=== PATIENT | male | born 1965 | race African-American/Black ===

== ENCOUNTER 2019-01-08 11:31 | Outpatient (CLI) | payer OTHER ==
--- NOTE | 2019-01-08 12:01 | RAD ---
LUMBAR SPINE 2 VIEWS: HISTORY: Disability exam. FINDINGS: AP and lateral views of the lumbar spine are performed. There are some generalized disc osteophytosi s and facet arthrosis changes. No evidence for acute compression fracture. No significant malalignm ent. IMPRESSION: Lumbar spondylosis without other acute process. POS: [facility]
== END 2019-01-08 11:32 | disposition home or self-care (01) ==
LOC: BICRAD 11:31
PROVIDERS: ATTEND Internal Medicine
DX: Z02.71 Encounter for disability determination (principal); M47.816 Spondylosis without myelopathy or radiculopathy, lumbar region
CPT/HCPCS: 72100

== ENCOUNTER 2019-01-12 09:26 | Outpatient (CLI) | payer OTHER ==
--- NOTE | 2019-01-12 09:49 | RAD ---
RIGHT KNEE TWO VIEWS: History: Disability examination. FINDINGS: No acute fracture or dislocation. Mild degenerative changes. IMPRESSION: Unremarkable left knee. POS: [facility]
== END 2019-01-12 09:27 | disposition home or self-care (01) ==
LOC: BICRAD 09:26
PROVIDERS: ATTEND Internal Medicine
DX: Z02.71 Encounter for disability determination (principal)

== ENCOUNTER 2020-04-28 13:51 | Emergency (ER) | payer SELFPAY ==
[2020-04-28 15:12] LABS: Hemoglobin 8.7 g/dL (14.0-18.0); Mean Corpuscular HGB CONC 29.5 g/dL (32.0-36.0); Mean Corpuscular Hemoglobin 22.5 pg (27.0-31.0); Mean Corpuscular Volume 76.3 fL (78.0-98.0); Mean Platelet Volume 10.2 fL (7.4-10.4); Platelet Count 248 thou/uL (130-400); RBC Distribution Width 21.5 % (11.5-14.5); Red Blood Cell (RBC) Count 3.84 mill/uL (4.70-6.10); White Blood Cell (WBC) Count 6.5 thou/uL (4.8-10.8)
[2020-04-28 15:35] LABS: ALT (SGPT) 18 U/L (8-55); AST (SGOT) 32 U/L (5-34); Albumin 4.1 g/dL (3.5-5.0); Alkaline Phosphatase 62 U/L (40-110); Anion Gap 15 mmol/L (10-20); BUN (Urea Nitrogen) 8 mg/dL (8.4-25.7); Bilirubin, Total 0.3 mg/dL (0.2-1.2); Calc. Creatinine Clearance 0 mL/min (70-130); Carbon Dioxide 19 mmol/L (22-29); Chloride 106 mmol/L (98-107); Estimated GFR-MDRD Greater than 90; Globulin 3.5 g/dL (2.4-3.5); Glucose 105 mg/dL (70-105); Potassium 4.1 mmol/L (3.5-5.1); Protein, Total 7.6 g/dL (6.0-8.3); Sodium 136 mmol/L (136-145)
[2020-04-28 15:41] LABS: Anisocytosis MODERATE=16-30 cells (100X) (0-5/hpf); Band 2 % (5-11); Eosinophils 5 % (0-10); Hypochromia SLIGHT = 6-15 cells (100X) (0-5/hpf); Lymphocytes 22 % (21-51); MDiff Complete? YES; Microcytosis SLIGHT = 6-15 cells (100X) (0-5/hpf); Monocytes 20 % (0-10); Neutrophil 47 % (42-75); Nucleated RBC 1 % (0); Ovalocytes SLIGHT = 2-5 cells (100X) (0-1/hpf); Platelet Morphology Comment Appears Adequate; Polychromasia SLIGHT = 2-3 cells (100X) (0-2/hpf); Schistocytes SLIGHT = 2-5 cells (100X) (0-1/hpf)
--- NOTE | 2020-05-06 15:34 | EKG ---
Test Reason : Blood Pressure : / mmHG Vent. Rate : 074 BPM Atrial Rate : 074 BPM P-R Int : 122 ms QRS Dur : 086 ms QT Int : 392 ms P-R-T Axes : 036 015 020 degrees QTc Int : 435 ms Normal sinus rhythm Normal ECG Confirmed by JUAN CARLOS AGUILAR DO ([id number]), editor [employer] photograph VIN DONG ([id number]) on 05/06/2020 3:34:21 PM Referred By: Confirmed By:JUAN CARLOS AGUILAR DO
== END 2020-04-28 16:45 | disposition home or self-care (01) ==
LOC: ERS 13:51
DX: D64.9 Anemia, unspecified (principal); R42 Dizziness and giddiness; J45.909 Unspecified asthma, uncomplicated; Z79.51 Long term (current) use of inhaled steroids
CPT/HCPCS: 80053; 84484; 85025; 93005; 96360

== ENCOUNTER 2022-07-12 15:19 | Inpatient (IN) | payer SELFPAY ==
[2022-07-12] MEDS ORDERED: Morphine 4 MG/ML VIAL ONE (17:25)
[2022-07-12 17:34] LABS: #Lymphocytes 1.9 thou/uL (1.20-3.40); #Monocytes 0.9 thou/uL (0.11-0.59); #Neutrophils 3.3 thou/uL (1.40-6.50); %Basophils 0.2 % (0.0-1.0); %Eosinophils 0.5 % (0.0-10.0); %Lymphocytes 31.6 % (21.0-51.0); %Monocytes 14.8 % (0.0-10.0); %Neutrophils 52.9 % (42.0-75.0); Hemoglobin 11.3 g/dL (14.0-18.0); Mean Corpuscular HGB CONC 33.3 g/dL (32.0-36.0); Mean Corpuscular Hemoglobin 29.9 pg (27.0-31.0); Mean Corpuscular Volume 89.9 fl (78.0-98.0); Mean Platelet Volume 7.3 fL (7.4-10.4); Platelet Count 197 thou/uL (130-400); RBC Distribution Width 12.5 % (11.5-14.5); Red Blood Cell (RBC) Count 3.78 mill/uL (4.70-6.10); White Blood Cell (WBC) Count 6.1 thou/uL (4.8-10.8)
[2022-07-12 17:53] LABS: ALT (SGPT) 22 U/L (8-55); AST (SGOT) 29 U/L (5-34); Albumin 2.6 g/dL (3.5-5.0); Alkaline Phosphatase 106 U/L (40-110); Anion Gap 13 mmol/L (10-20); BUN (Urea Nitrogen) 4 mg/dL (8.4-25.7); Bilirubin, Total 0.6 mg/dL (0.2-1.2); Calc. Creatinine Clearance 0 mL/min (70-130); Calcium 7.4 mg/dL (7.8-10.44); Carbon Dioxide 21 mmol/L (22-29); Chloride 105 mmol/L (98-107); Estimated GFR 107; Globulin 3.1 g/dL (2.4-3.5); Glucose 90 mg/dL (70-105); Protein, Total 5.7 g/dL (6.0-8.3); Sodium 136 mmol/L (136-145)
[2022-07-12 18:01] LABS: Potassium 2.6 mmol/L (3.5-5.1)
[2022-07-12] MEDS ORDERED: Magnesium 2 GM/50 ML BAG (IN WATER) ONE (18:11)
[2022-07-12] MEDS ORDERED: Potassium Chloride 20 MEQ TAB ONE (18:12)
[2022-07-12] MEDS ORDERED: NS 0.9% w/ 40 MEQ KCL 1,000 ML IV SCH (18:15)
[2022-07-12] MEDS ORDERED: Acetaminophen 325 MG TAB PO PRN (20:30)
[2022-07-12] MEDS ORDERED: Ondansetron PF 4 MG/2 ML Vial IVP PRN (20:30)
[2022-07-12] MEDS ORDERED: Ondansetron ODT 4 MG TAB SL PRN (20:30)
[2022-07-12] MEDS ORDERED: Albuterol Sulfate 2.5 mg/3 ml Neb NEB PRN (20:59)
[2022-07-12] MEDS ORDERED: Lorazepam 2 MG/ML VIAL IM PRN (21:02)
[2022-07-12] MEDS ORDERED: Lorazepam 1 MG TAB PO PRN (21:02)
[2022-07-12] MEDS ORDERED: Electrolyte Replacement Protocol 1 EACH FS SCH (21:15)
[2022-07-12] MEDS ORDERED: Folic Acid 1 MG TAB PO SCH (21:15)
[2022-07-12] MEDS ORDERED: Multivit, Therapeutic 1 TAB PO SCH (21:15)
[2022-07-12 23:12] LABS: Magnesium 1.4 mg/dL (1.6-2.6); Potassium 3.3 mmol/L (3.5-5.1)
[2022-07-12] MEDS: Gabapentin 300 MG CAP PO SCH (23:20)
[2022-07-12] MEDS: Thiamine HCl 200 MG/2 ML VIAL SLOW IVP SCH (23:21)
[2022-07-13] MEDS ORDERED: Magnesium Sulfate In Water 4 GM in Premix Bag 1 BAG IVPB SCH (05:00)
[2022-07-13] MEDS ORDERED: Magnesium Sulfate 4 GM in Sodium Chloride 0.9% 250 ML 250 ML IVPB SCH (05:00)
[2022-07-13 05:28] LABS: Anion Gap 11 mmol/L (10-20); BUN (Urea Nitrogen) 4 mg/dL (8.4-25.7); Calc. Creatinine Clearance 89 mL/min (70-130); Carbon Dioxide 19 mmol/L (22-29); Chloride 111 mmol/L (98-107); Estimated GFR 107; Glucose 196 mg/dL (70-105); Magnesium 1.4 mg/dL (1.6-2.6); Potassium 3.1 mmol/L (3.5-5.1); Sodium 138 mmol/L (136-145)
[2022-07-13 05:44] LABS: Band 7 % (5-11); Hemoglobin 10.5 g/dL (14.0-18.0); Lymphocytes 33 % (21-51); MDiff Complete? YES; Mean Corpuscular HGB CONC 31.7 g/dL (32.0-36.0); Mean Corpuscular Hemoglobin 29.3 pg (27.0-31.0); Mean Corpuscular Volume 92.5 fl (78.0-98.0); Mean Platelet Volume 7.3 fL (7.4-10.4); Monocytes 19 % (0-10); Neutrophil 41 % (42-75); Platelet Count 201 thou/uL (130-400); RBC Distribution Width 12.6 % (11.5-14.5); Red Blood Cell (RBC) Count 3.58 mill/uL (4.70-6.10); White Blood Cell (WBC) Count 6.2 thou/uL (4.8-10.8)
[2022-07-13] MEDS ORDERED: Potassium Chloride 20 MEQ TAB PO SCH (07:45)
[2022-07-13] MEDS ORDERED: Magnesium 2 GM/50 ML(in water) 2 GM in Premix Bag 1 BAG IVPB SCH (08:00)
[2022-07-13] MEDS ORDERED: CALCIUM GLUC 1GM/NS 50ML BAG IVPB SCH (08:00)
[2022-07-13] MEDS: Multivit, Therapeutic 1 TAB PO SCH (08:34)
[2022-07-13] MEDS: Gabapentin 300 MG CAP PO SCH ×3 (08:34→20:49)
[2022-07-13] MEDS: Enoxaparin Sodium 40 MG/0.4 ML SYRINGE SC SCH (08:34)
[2022-07-13] MEDS: Folic Acid 1 MG TAB PO SCH (08:35)
[2022-07-13] MEDS: Potassium Chloride 20 MEQ in Premix Bag 1 BAG IVPB SCH ×3 (10:46→13:24)
[2022-07-13 14:00] VITALS: BMI 17.2
[2022-07-13] MEDS ORDERED: Albuterol 200 PUFF (6.7GM INHALER) INH PRN (17:19)
[2022-07-13 18:46] LABS: Potassium 3.9 mmol/L (3.5-5.1)
[2022-07-13] MEDS: Thiamine HCl 200 MG/2 ML VIAL SLOW IVP SCH (20:47)
[2022-07-13] MEDS ORDERED: Lorazepam 1 MG TAB PO PRN (21:02)
[2022-07-14 05:41] LABS: Hemoglobin 10.4 g/dL (14.0-18.0); Mean Corpuscular HGB CONC 32.3 g/dL (32.0-36.0); Mean Corpuscular Hemoglobin 29.9 pg (27.0-31.0); Mean Corpuscular Volume 92.6 fl (78.0-98.0); Platelet Count 179 thou/uL (130-400); RBC Distribution Width 12.6 % (11.5-14.5); Red Blood Cell (RBC) Count 3.46 mill/uL (4.70-6.10); White Blood Cell (WBC) Count 5.7 thou/uL (4.8-10.8)
[2022-07-14 05:42] LABS: Band 2 % (5-11); Eosinophils 2 % (0-10); Lymphocytes 27 % (21-51); MDiff Complete? YES; Monocytes 14 % (0-10); Neutrophil 55 % (42-75)
[2022-07-14 05:47] LABS: Anion Gap 10 mmol/L (10-20); BUN (Urea Nitrogen) 6 mg/dL (8.4-25.7); Calc. Creatinine Clearance 91 mL/min (70-130); Calcium 7.3 mg/dL (7.8-10.44); Carbon Dioxide 20 mmol/L (22-29); Chloride 111 mmol/L (98-107); Estimated GFR 108; Glucose 110 mg/dL (70-105); Magnesium 1.6 mg/dL (1.6-2.6); Potassium 3.4 mmol/L (3.5-5.1); Sodium 138 mmol/L (136-145)
[2022-07-14] MEDS: Mometasone 200 MCG/Formoterol 5 MCG 120 PUFF INHALER INH SCH ×2 (07:25→18:58)
[2022-07-14] MEDS ORDERED: Potassium Chloride 20 MEQ TAB PO SCH (08:00)
[2022-07-14] MEDS ORDERED: Magnesium 2 GM/50 ML(in water) 2 GM in Premix Bag 1 BAG IVPB SCH (08:00)
[2022-07-14] MEDS: Enoxaparin Sodium 40 MG/0.4 ML SYRINGE SC SCH (09:09)
[2022-07-14] MEDS: Gabapentin 300 MG CAP PO SCH ×3 (09:10→20:46)
[2022-07-14] MEDS: HYDROcodone/Acetaminophen 5/325 mg Tablet PO PRN ×2 (09:10→20:40)
[2022-07-14] MEDS: Ferrous Sulfate 325 MG TAB PO SCH (09:10)
[2022-07-14] MEDS: Folic Acid 1 MG TAB PO SCH (09:10)
[2022-07-14] MEDS: Multivit, Therapeutic 1 TAB PO SCH (09:10)
[2022-07-14 14:10] LABS: Potassium 3.9 mmol/L (3.5-5.1)
[2022-07-14] MEDS: Thiamine HCl 200 MG/2 ML VIAL SLOW IVP SCH (20:45)
[2022-07-14] MEDS ORDERED: Lorazepam 1 MG TAB PO PRN (21:02)
[2022-07-15] MEDS: traMADol HCl 50 MG TAB PO PRN (05:36)
[2022-07-15 05:43] LABS: Anion Gap 10 mmol/L (10-20); BUN (Urea Nitrogen) 7 mg/dL (8.4-25.7); Calc. Creatinine Clearance 93 mL/min (70-130); Calcium 7.2 mg/dL (7.8-10.44); Carbon Dioxide 20 mmol/L (22-29); Chloride 111 mmol/L (98-107); Estimated GFR 108; Glucose 90 mg/dL (70-105); Magnesium 1.3 mg/dL (1.6-2.6); Potassium 3.3 mmol/L (3.5-5.1); Sodium 138 mmol/L (136-145)
[2022-07-15] MEDS: Mometasone 200 MCG/Formoterol 5 MCG 120 PUFF INHALER INH SCH ×2 (06:45→18:40)
[2022-07-15] MEDS ORDERED: Potassium Chloride 20 MEQ TAB PO SCH (08:00)
[2022-07-15] MEDS ORDERED: Magnesium Sulfate In Water 4 GM in Premix Bag 1 BAG IVPB SCH (08:00)
[2022-07-15] MEDS: Gabapentin 300 MG CAP PO SCH ×3 (09:14→20:37)
[2022-07-15] MEDS: Multivit, Therapeutic 1 TAB PO SCH (09:15)
[2022-07-15] MEDS: Ferrous Sulfate 325 MG TAB PO SCH (09:15)
[2022-07-15] MEDS: Folic Acid 1 MG TAB PO SCH (09:15)
[2022-07-15] MEDS: Thiamine 100 MG TAB PO SCH (09:15)
[2022-07-15] MEDS: Enoxaparin Sodium 40 MG/0.4 ML SYRINGE SC SCH (09:16)
[2022-07-15] MEDS ORDERED: Atenolol 25 MG TAB PO SCH (15:30)
[2022-07-15] MEDS ORDERED: Lorazepam 0.5 MG TAB PO PRN (21:02)
[2022-07-16] MEDS: Mometasone 200 MCG/Formoterol 5 MCG 120 PUFF INHALER INH SCH (08:02)
[2022-07-16] MEDS ORDERED: Atenolol 25 MG TAB PO SCH (09:00)
[2022-07-16] MEDS: Multivit, Therapeutic 1 TAB PO SCH (09:39)
[2022-07-16] MEDS: Ferrous Sulfate 325 MG TAB PO SCH (09:39)
[2022-07-16] MEDS: Thiamine 100 MG TAB PO SCH (09:40)
[2022-07-16] MEDS: Folic Acid 1 MG TAB PO SCH (09:40)
[2022-07-16] MEDS: Enoxaparin Sodium 40 MG/0.4 ML SYRINGE SC SCH (09:40)
[2022-07-16] MEDS: Gabapentin 300 MG CAP PO SCH ×2 (09:40→14:12)
[2022-07-16] MEDS: traMADol HCl 50 MG TAB PO PRN (09:46)
[2022-07-17 02:36] VITALS: BP 152/99; TEMP 98.3
== END 2022-07-16 17:40 | disposition home or self-care (01) | DRG 641 ==
LOC: ERS 15:19 → 2SW 21:16 → OBSVTOIN 07-13 17:11
PROVIDERS: ADMIT Hospitalist; ATTEND Hospitalist
DX: E87.6 Hypokalemia (principal); Z20.822 Contact with and (suspected) exposure to COVID-19; J45.909 Unspecified asthma, uncomplicated; G89.29 Other chronic pain; J45.20 Mild intermittent asthma, uncomplicated; F10.10 Alcohol abuse, uncomplicated; D50.9 Iron deficiency anemia, unspecified; E83.42 Hypomagnesemia; M51.37 Other intervertebral disc degeneration, lumbosacral region; Z80.3 Family history of malignant neoplasm of breast; Z80.51 Family history of malignant neoplasm of kidney; Z79.899 Other long term (current) drug therapy; Z79.51 Long term (current) use of inhaled steroids
CPT/HCPCS: 36415; 72148; 80048; 80053; 82607; 83735; 83880; 84443; 85025; 85379; 93005; 96372; 96374; 96375; 96376; G0378; J0610; J1650; J2270; J3411; J3475; J3480; U0003; U0005

== ENCOUNTER 2022-11-16 09:21 | Inpatient (IN) | payer SELFPAY ==
[2022-11-16 10:25] LABS: #Lymphocytes 1.5 thou/uL (1.20-3.40); #Monocytes 0.4 thou/uL (0.11-0.59); #Neutrophils 2.9 thou/uL (1.40-6.50); %Basophils 0.1 % (0.0-1.0); %Eosinophils 0.2 % (0.0-10.0); %Lymphocytes 31.5 % (21.0-51.0); %Neutrophils 59.1 % (42.0-75.0); Hemoglobin 9.5 g/dL (14.0-18.0); Mean Corpuscular HGB CONC 32.4 g/dL (32.0-36.0); Mean Corpuscular Hemoglobin 28.5 pg (27.0-31.0); Mean Platelet Volume 9.4 fL (7.4-10.4); Platelet Count 150 10x3/uL (130-400); RBC Distribution Width 13.7 % (11.5-14.5); Red Blood Cell (RBC) Count 3.33 mill/uL (4.70-6.10); White Blood Cell (WBC) Count 4.9 10x3/uL (4.8-10.8)
[2022-11-16 10:36] LABS: ALT (SGPT) 42 U/L (8-55); AST (SGOT) 44 U/L (5-34); Albumin 1.7 g/dL (3.5-5.0); Alkaline Phosphatase 119 U/L (40-110); Anion Gap 14 mmol/L (10-20); BUN (Urea Nitrogen) 5 mg/dL (8.4-25.7); Bilirubin, Total 0.4 mg/dL (0.2-1.2); CK (CPK) 746 U/L (30-200); Calc. Creatinine Clearance 0 mL/min (70-130); Carbon Dioxide 25 mmol/L (22-29); Chloride 105 mmol/L (98-107); Estimated GFR 108; Globulin 3.6 g/dL (2.4-3.5); Glucose 101 mg/dL (70-105); Lipase Less than 4 U/L (8-78); Protein, Total 5.3 g/dL (6.0-8.3); Sodium 142 mmol/L (136-145)
[2022-11-16 10:36] LABS: Acetaminophen Less than 10.0 mcg/mL (10.0-30.0); Alcohol Less than 10 mg/dL (Less than 10); Salicylate Less than 8.0 mg/dL (15.0-30.0)
[2022-11-16 10:48] LABS: Calcium 5.3 mg/dL (7.8-10.44)
[2022-11-16] MEDS ORDERED: Potassium Chloride 20 MEQ TAB ONE (10:55)
[2022-11-16 13:00] LABS: Lactic Acid 2.7 mmol/L (0.5-2.2)
[2022-11-16] MEDS ORDERED: Senokot S 8.6-50 MG TAB PO PRN (13:35)
[2022-11-16] MEDS ORDERED: Ondansetron PF 4 MG/2 ML Vial IVP PRN (13:35)
[2022-11-16] MEDS ORDERED: Acetaminophen 325 MG TAB PO PRN (13:35)
[2022-11-16] MEDS ORDERED: Ondansetron ODT 4 MG TAB PO PRN (13:35)
[2022-11-16] MEDS ORDERED: Electrolyte Replacement Protocol FS SCH (13:45)
[2022-11-16] MEDS: Ipratropium/Albuterol 3 ML NEB NEB PRN (14:50)
[2022-11-16] MEDS ORDERED: CALCIUM GLUC 1 GM/NS 50 ML 1 GM in Premix Bag 1 BAG IVPB SCH (15:15)
[2022-11-16] MEDS ORDERED: Multivit, Therapeutic 1 TAB PO SCH (16:00)
[2022-11-16] MEDS ORDERED: Folic Acid 1 MG TAB PO SCH (16:00)
[2022-11-16 16:14] LABS: Potassium 2.3 mmol/L (3.5-5.1)
[2022-11-16] MEDS: Potassium Chloride 20 MEQ in Premix Bag 1 BAG IVPB SCH ×2 (16:53→20:24)
[2022-11-16 19:49] LABS: Lactic Acid 4.4 mmol/L (0.5-2.2)
[2022-11-16] MEDS: Morphine 2 MG/ML VIAL SLOW IVP PRN (20:45)
[2022-11-16 23:52] LABS: #Lymphocytes 1.1 thou/uL (1.20-3.40); #Monocytes 0.7 thou/uL (0.11-0.59); #Neutrophils 7.6 thou/uL (1.40-6.50); %Basophils 0.1 % (0.0-1.0); %Eosinophils 0.1 % (0.0-10.0); %Neutrophils 80.7 % (42.0-75.0); Hemoglobin 9.3 g/dL (14.0-18.0); Mean Corpuscular HGB CONC 31.6 g/dL (32.0-36.0); Mean Corpuscular Hemoglobin 27.8 pg (27.0-31.0); Mean Corpuscular Volume 88.1 fl (78.0-98.0); Mean Platelet Volume 9.1 fL (7.4-10.4); Platelet Count 142 10x3/uL (130-400); RBC Distribution Width 13.6 % (11.5-14.5); Red Blood Cell (RBC) Count 3.32 mill/uL (4.70-6.10); White Blood Cell (WBC) Count 9.4 10x3/uL (4.8-10.8)
[2022-11-17 00:01] LABS: Actual Bicarbonate (HCO3v) 23 mEq/L (22-28); Base Excess -1.7 mEq/L (-2.0 to +3.0); Chloride (VBG) 104 mmol/L (98-106); Hemoglobin (Hb) 10.4 g/dL (13.1-17.2); Sodium 135.1 mmol/L (133-146)
[2022-11-17 00:12] LABS: ALT (SGPT) 43 U/L (8-55); AST (SGOT) 41 U/L (5-34); Albumin 1.5 g/dL (3.5-5.0); Alkaline Phosphatase 114 U/L (40-110); Anion Gap 15 mmol/L (10-20); BUN (Urea Nitrogen) 7 mg/dL (8.4-25.7); Bilirubin, Total 0.4 mg/dL (0.2-1.2); Calc. Creatinine Clearance 66 mL/min (70-130); Carbon Dioxide 21 mmol/L (22-29); Chloride 105 mmol/L (98-107); Estimated GFR 98; Globulin 3.6 g/dL (2.4-3.5); Glucose 201 mg/dL (70-105); Protein, Total 5.1 g/dL (6.0-8.3); Sodium 138 mmol/L (136-145)
[2022-11-17 00:15] LABS: Calcium 5.2 mg/dL (7.8-10.44); Potassium 2.6 mmol/L (3.5-5.1)
[2022-11-17] MEDS ORDERED: Albumin 25% 25 GM/100 ML BOT IVPB SCH (00:15)
[2022-11-17] MEDS ORDERED: Calcium Gluconate 4.6 MEQ in Sodium Chloride 0.9% 100 ML IVPB ONE (00:22)
[2022-11-17] MEDS: Potassium Chloride 20 MEQ in Premix Bag 1 BAG IVPB SCH ×5 (00:34→18:32)
[2022-11-17 00:40] LABS: Lactic Acid 5.7 mmol/L (0.5-2.2); Magnesium 0.8 mg/dL (1.6-2.6)
[2022-11-17] MEDS ORDERED: CALCIUM GLUC 1 GM/NS 50 ML 1 GM in Premix Bag 1 BAG IVPB SCH (00:45)
[2022-11-17] MEDS ORDERED: Magnesium Sulfate In Water 4 GM in Premix Bag 1 BAG IVPB SCH (01:30)
[2022-11-17] MEDS ORDERED: Vancomycin 1 GM in Premix Bag 1 BAG IVPB SCH (03:00)
[2022-11-17] MEDS: Cefepime 2 GM in Sodium Chloride 0.9% 100 ML IVPB SCH ×2 (03:08→16:31)
[2022-11-17] MEDS ORDERED: Sodium Chloride 0.9% 500 ML IV SCH (03:30)
[2022-11-17 05:33] LABS: Hemoglobin 6.9 g/dL (14.0-18.0); Mean Corpuscular HGB CONC 33.1 g/dL (32.0-36.0); Mean Corpuscular Hemoglobin 28.9 pg (27.0-31.0); Mean Corpuscular Volume 87.2 fl (78.0-98.0); RBC Distribution Width 13.6 % (11.5-14.5); White Blood Cell (WBC) Count 22.4 10x3/uL (4.8-10.8)
[2022-11-17 05:35] LABS: INR-International Normal Ratio 2.1; PTT 53.2 sec (22.9-36.1); Prothrombin Time 24.4 sec (12.0-14.7)
[2022-11-17 05:52] LABS: Lactic Acid 5.1 mmol/L (0.5-2.2); Phosphorus 1.5 mg/dL (2.3-4.7)
[2022-11-17 05:55] LABS: ALT (SGPT) 31 U/L (8-55); AST (SGOT) 25 U/L (5-34); Alkaline Phosphatase 82 U/L (40-110); Anion Gap 15 mmol/L (10-20); BUN (Urea Nitrogen) 8 mg/dL (8.4-25.7); Bilirubin, Total 0.4 mg/dL (0.2-1.2); CK (CPK) 442 U/L (30-200); Calc. Creatinine Clearance 71 mL/min (70-130); Carbon Dioxide 19 mmol/L (22-29); Chloride 106 mmol/L (98-107); Estimated GFR 100; Globulin 2.5 g/dL (2.4-3.5); Glucose 245 mg/dL (70-105); Potassium 2.8 mmol/L (3.5-5.1); Protein, Total 4.5 g/dL (6.0-8.3); Sodium 137 mmol/L (136-145)
[2022-11-17 06:02] LABS: Calcium 5.2 mg/dL (7.8-10.44)
[2022-11-17 06:08] LABS: Ferritin 662.71 ng/mL (22-322)
[2022-11-17 06:22] LABS: HBCM Index 0.08 S/CO (0-0.79); HBSAg Index 0.36 S/CO (0-0.99); Hep A IgM AB Non-Reactive (NonReactive); Hep B Surf Ag Non-Reactive S/CO (NonReactive); Hep C IgG Ab Non-Reactive (NonReactive); Hep C Index 0.12 S/CO (0-0.79); Hepatitis B Core IgM Abs Non-Reactive (NonReactive)
[2022-11-17] MEDS: PHOS-NAK 1 PKT PACK PO SCH ×2 (06:31→10:05)
[2022-11-17 06:36] LABS: Band 1 % (5-11); Lymphocytes 3 % (21-51); MDiff Complete? YES; Mean Platelet Volume 9.6 fL (7.4-10.4); Monocytes 6 % (0-10); Neutrophil 89 % (42-75); Platelet Count 109 10x3/uL (130-400); Platelet Morphology Comment Appears Decreased; Polychromasia SLIGHT = 2-3 cells (100X) (0-2/hpf); Reactive Lymphocytes 1 % (0-10); Schistocytes SLIGHT = 2-5 cells (100X) (0-1/hpf)
[2022-11-17 07:11] LABS: Bacteria/HPF None Seen HPF (None Seen); Bilirubin Negative (Negative); Blood, Urine Negative (Negative); CAUTI Indications for Culture Fever or rigors; Clarity Clear (Clear); Glucose, Urine (Dipstick) Normal (Negative); Ketone, Urine Negative (Negative); Leukocyte Negative Leu/uL (Negative); Nitrite Negative (Negative); Protein, Urine (Dipstick) 10 mg/dL (Neg-Trace); RBC/HPF 0-3 HPF (0-3); Specific Gravity, Urine 1.027 (1.002-1.036); Squamous Epithelial None Seen HPF (0-3); Urobilinogen Normal mg/dL (Less than 2)
[2022-11-17 07:13] LABS: Urine Culture Reflex No No
[2022-11-17 07:14] LABS: Amphetamine Not Detected (NotDetected); Barbiturates Screen Not Detected (NotDetected); Benzodiazepine Screen Not Detected (NotDetected); Cocaine Metabolite Screen Detected (NotDetected); Methadone Not Detected (NotDetected); Methamphetamine Not Detected (NotDetected); Opiate Screen Detected (NotDetected); Oxycodone Screen Not Detected (NotDetected); Phencyclidine (PCP) Not Detected (NotDetected); THC/Cannabinoid Screen Not Detected (NotDetected); Tricyclic Screen Not Detected (NotDetected)
[2022-11-17] MEDS ORDERED: Potassium Chloride 20 MEQ in Premix Bag 1 BAG IVPB SCH ×2 (08:00→20:00)
[2022-11-17 08:37] LABS: Lactic Acid 3.9 mmol/L (0.5-2.2)
[2022-11-17 08:40] LABS: Anion Gap 12 mmol/L (10-20); BUN (Urea Nitrogen) 7 mg/dL (8.4-25.7); Calc. Creatinine Clearance 90 mL/min (70-130); Carbon Dioxide 20 mmol/L (22-29); Chloride 106 mmol/L (98-107); Estimated GFR 103; Glucose 192 mg/dL (70-105); Magnesium 1.5 mg/dL (1.6-2.6); Sodium 135 mmol/L (136-145)
[2022-11-17 08:57] LABS: Calcium 5.1 mg/dL (7.8-10.44)
[2022-11-17] MEDS: Folic Acid 1 MG TAB PO SCH (10:05)
[2022-11-17] MEDS: Multivit, Therapeutic 1 TAB PO SCH (10:06)
[2022-11-17 11:45] LABS: Syphilis Antibody Nonreactive (Nonreactive); Syphilis Antibody Index 0.12 S/CO (<1.00 Non-Reactive)
[2022-11-17] MEDS ORDERED: Magnesium 2 GM/50 ML(in water) 2 GM in Premix Bag 1 BAG IVPB SCH (12:15)
[2022-11-17] MEDS ORDERED: Potassium Phosphate 30 MMOL in Sodium Chloride 0.9% 250 ML 250 ML IVPB SCH (13:00)
[2022-11-17] MEDS ORDERED: Phytonadione 10 MG in Sodium Chloride 0.9% 50 ML IVPB SCH (13:00)
[2022-11-17] MEDS ORDERED: ISOVUE-370 76%-LOCM 500 ML MDV (1 ML CHARGE) ONE (15:23)
[2022-11-17] MEDS ORDERED: Gadobenate 529 MG/1 ML (20ML SDV) ONE (15:28)
[2022-11-17] MEDS: Morphine 2 MG/ML VIAL SLOW IVP PRN (16:21)
[2022-11-17] MEDS: Vancomycin HCl 750 MG in Sodium Chloride 0.9% 250 ML 250 ML IVPB SCH ×2 (16:32→23:29)
[2022-11-17 16:48] LABS: Albumin 1.8 g/dL (3.5-5.0); Anion Gap 13 mmol/L (10-20); BUN (Urea Nitrogen) 7 mg/dL (8.4-25.7); BUN/Creatinine Ratio 9.09; Calc. Creatinine Clearance 90 mL/min (70-130); Carbon Dioxide 21 mmol/L (22-29); Chloride 106 mmol/L (98-107); Estimated GFR 103; Glucose 164 mg/dL (70-105); Phosphorus 1.8 mg/dL (2.3-4.7); Potassium 3.3 mmol/L (3.5-5.1); Sodium 137 mmol/L (136-145)
[2022-11-17 16:58] LABS: Calcium 5.6 mg/dL (7.8-10.44)
[2022-11-17] MEDS ORDERED: Calcium Chloride 13.6 MEQ in Sodium Chloride 0.9% 100 ML IVPB SCH (17:15)
[2022-11-17] MEDS: Albumin 25% 25 GM/100 ML BOT IVPB SCH ×2 (17:50→23:29)
[2022-11-18] MEDS: Ipratropium/Albuterol 3 ML NEB NEB PRN (00:49)
[2022-11-18] MEDS: Cefepime 2 GM in Sodium Chloride 0.9% 100 ML IVPB SCH ×2 (00:51→13:32)
[2022-11-18] MEDS: Albumin 25% 25 GM/100 ML BOT IVPB SCH ×2 (00:51→06:09)
[2022-11-18 03:58] LABS: Hemoglobin 7.1 g/dL (14.0-18.0); Mean Corpuscular HGB CONC 32.7 g/dL (32.0-36.0); Mean Corpuscular Volume 85.7 fl (78.0-98.0); Mean Platelet Volume 9.7 fL (7.4-10.4); Platelet Count 78 10x3/uL (130-400); RBC Distribution Width 13.4 % (11.5-14.5); Red Blood Cell (RBC) Count 2.52 mill/uL (4.70-6.10); White Blood Cell (WBC) Count 15.7 10x3/uL (4.8-10.8)
[2022-11-18] MEDS: Vancomycin HCl 750 MG in Sodium Chloride 0.9% 250 ML 250 ML IVPB SCH ×3 (04:13→21:56)
[2022-11-18 04:21] LABS: Vancomycin, Trough 19.3 ug/mL
[2022-11-18 04:37] LABS: Phosphorus 2.7 mg/dL (2.3-4.7)
[2022-11-18 04:38] LABS: ALT (SGPT) 21 U/L (8-55); AST (SGOT) 17 U/L (5-34); Albumin 2.8 g/dL (3.5-5.0); Albumin 3.1 g/dL (3.5-5.0); Alkaline Phosphatase 65 U/L (40-110); Anion Gap 11 mmol/L (10-20); Anion Gap 14 mmol/L (10-20); BUN (Urea Nitrogen) 7 mg/dL (8.4-25.7); Bilirubin, Total 1.1 mg/dL (0.2-1.2); CK (CPK) 291 U/L (30-200); Calc. Creatinine Clearance 93 mL/min (70-130); Calc. Creatinine Clearance 99 mL/min (70-130); Calcium 6.3 mg/dL (7.8-10.44); Carbon Dioxide 20 mmol/L (22-29); Carbon Dioxide 23 mmol/L (22-29); Chloride 108 mmol/L (98-107); Chloride 109 mmol/L (98-107); Estimated GFR 104; Estimated GFR 106; Globulin 2.1 g/dL (2.4-3.5); Glucose 155 mg/dL (70-105); Magnesium 1.2 mg/dL (1.6-2.6); Phosphorus 2.7 mg/dL (2.3-4.7); Potassium 2.9 mmol/L (3.5-5.1); Protein, Total 5.2 g/dL (6.0-8.3); Sodium 139 mmol/L (136-145); Sodium 140 mmol/L (136-145)
[2022-11-18 04:39] LABS: HIV (1/2) Antibody/Antigen Non-Reactive (NonReactive); HIV 1/2 INDEX 0.25 S/CO (<1.00)
[2022-11-18] MEDS ORDERED: Calcium Chloride 13.6 MEQ in Sodium Chloride 0.9% 100 ML IVPB SCH (05:30)
[2022-11-18 06:01] LABS: #Lymphocytes 1.1 thou/uL (1.20-3.40); #Monocytes 1.8 thou/uL (0.11-0.59); #Neutrophils 12.8 thou/uL (1.40-6.50); %Basophils 0.1 % (0.0-1.0); %Eosinophils 0.1 % (0.0-10.0); %Lymphocytes 6.9 % (21.0-51.0); %Monocytes 11.4 % (0.0-10.0); %Neutrophils 81.5 % (42.0-75.0); Band 6 % (5-11); Lymphocytes 3 % (21-51); MDiff Complete? YES; Monocytes 6 % (0-10); Neutrophil 85 % (42-75); Nucleated RBC 1 % (0)
[2022-11-18] MEDS ORDERED: Potassium Chloride 20 MEQ TAB PO SCH (08:00)
[2022-11-18] MEDS ORDERED: Magnesium Sulfate In Water 4 GM in Premix Bag 1 BAG IVPB SCH (08:00)
[2022-11-18] MEDS: Multivit, Therapeutic 1 TAB PO SCH (09:01)
[2022-11-18] MEDS: Folic Acid 1 MG TAB PO SCH (09:01)
[2022-11-18] MEDS: Ergocalciferol 1.25 MG(50,000 UNITS) CAP PO SCH (09:02)
[2022-11-18] MEDS: Potassium Bicarbonate/Cit Ac 20 MEQ TAB PO SCH ×3 (09:02→16:44)
[2022-11-18] MEDS: Phytonadione 5 MG TAB PO SCH (11:42)
[2022-11-18 12:01] LABS: Calcium, Ionized (venous) 0.68 mmol/L (1.16-1.32); Potassium (VBG) 2.61 mmol/L (3.70-5.30)
[2022-11-18 12:03] LABS: Iron 46 ug/dL (65-175)
[2022-11-19 01:03] LABS: Iron Binding Capacity, Total 28 mcg/dL (261-462)
[2022-11-19] MEDS: Cefepime 2 GM in Sodium Chloride 0.9% 100 ML IVPB SCH ×2 (01:54→12:51)
[2022-11-19] MEDS: Vancomycin HCl 750 MG in Sodium Chloride 0.9% 250 ML 250 ML IVPB SCH ×2 (03:41→13:41)
[2022-11-19 04:09] LABS: Vancomycin, Trough 24.7 ug/mL
[2022-11-19 09:03] LABS: #Lymphocytes 1.9 thou/uL (1.20-3.40); #Monocytes 2.4 thou/uL (0.11-0.59); #Neutrophils 13.3 thou/uL (1.40-6.50); %Lymphocytes 10.6 % (21.0-51.0); %Monocytes 13.4 % (0.0-10.0); %Neutrophils 75.9 % (42.0-75.0); Hemoglobin 8.1 g/dL (14.0-18.0); Mean Corpuscular Hemoglobin 27.9 pg (27.0-31.0); Mean Corpuscular Volume 87.3 fl (78.0-98.0); Mean Platelet Volume 10.3 fL (7.4-10.4); Platelet Count 82 10x3/uL (130-400); RBC Distribution Width 13.6 % (11.5-14.5); Red Blood Cell (RBC) Count 2.92 mill/uL (4.70-6.10); White Blood Cell (WBC) Count 17.5 10x3/uL (4.8-10.8)
[2022-11-19 09:24] LABS: ALT (SGPT) 23 U/L (8-55); AST (SGOT) 23 U/L (5-34); Albumin 2.7 g/dL (3.5-5.0); Alkaline Phosphatase 69 U/L (40-110); Anion Gap 12 mmol/L (10-20); BUN (Urea Nitrogen) 7 mg/dL (8.4-25.7); Bilirubin, Total 0.6 mg/dL (0.2-1.2); Calc. Creatinine Clearance 101 mL/min (70-130); Carbon Dioxide 24 mmol/L (22-29); Chloride 108 mmol/L (98-107); Estimated GFR 108; Globulin 2.7 g/dL (2.4-3.5); Glucose 148 mg/dL (70-105); Protein, Total 5.4 g/dL (6.0-8.3); Sodium 141 mmol/L (136-145)
[2022-11-19 09:29] LABS: Calcium 6.3 mg/dL (7.8-10.44)
[2022-11-19] MEDS ORDERED: Potassium Chloride 20 MEQ TAB PO SCH (09:45)
[2022-11-19] MEDS: Multivit, Therapeutic 1 TAB PO SCH (10:03)
[2022-11-19] MEDS: Folic Acid 1 MG TAB PO SCH (10:03)
[2022-11-19] MEDS: Phytonadione 5 MG TAB PO SCH (10:04)
[2022-11-19] MEDS ORDERED: Calcium Chloride 13.6 MEQ in Sodium Chloride 0.9% 100 ML IVPB SCH (12:00)
[2022-11-19] MEDS ORDERED: Magnesium Sulfate 4 GM in Sodium Chloride 0.9% 250 ML 250 ML IVPB SCH (12:00)
[2022-11-19 12:05] LABS: Vancomycin, Trough 41.7 ug/mL
[2022-11-19 12:39] LABS: CK (CPK) 323 U/L (30-200); Magnesium 1.3 mg/dL (1.6-2.6)
[2022-11-19] MEDS: Magnesium 2 GM/50 ML(in water) 2 GM in Premix Bag 1 BAG IVPB SCH ×2 (12:51→15:32)
[2022-11-19] MEDS: Potassium Bicarbonate/Cit Ac 20 MEQ TAB PO SCH ×3 (12:51→20:13)
[2022-11-19] MEDS: Albumin 25% 25 GM/100 ML BOT IVPB SCH ×2 (12:51→17:29)
[2022-11-19] MEDS: Morphine 2 MG/ML VIAL SLOW IVP PRN (13:35)
[2022-11-19] MEDS: Thiamine 100 MG TAB PO SCH (15:32)
[2022-11-20] MEDS: Potassium Bicarbonate/Cit Ac 20 MEQ TAB PO SCH (00:53)
[2022-11-20] MEDS: Cefepime 2 GM in Sodium Chloride 0.9% 100 ML IVPB SCH ×2 (00:54→14:08)
[2022-11-20] MEDS: Albumin 25% 25 GM/100 ML BOT IVPB SCH ×2 (00:54→06:46)
[2022-11-20 05:08] LABS: #Lymphocytes 1.2 thou/uL (1.20-3.40); %Basophils 0.1 % (0.0-1.0); %Eosinophils 0.1 % (0.0-10.0); %Lymphocytes 10.4 % (21.0-51.0); %Monocytes 9.1 % (0.0-10.0); %Neutrophils 80.3 % (42.0-75.0); Hemoglobin 7.6 g/dL (14.0-18.0); Mean Corpuscular HGB CONC 32.8 g/dL (32.0-36.0); Mean Corpuscular Hemoglobin 28.7 pg (27.0-31.0); Mean Corpuscular Volume 87.4 fl (78.0-98.0); Mean Platelet Volume 11.1 fL (7.4-10.4); Platelet Count 64 10x3/uL (130-400); RBC Distribution Width 13.7 % (11.5-14.5); Red Blood Cell (RBC) Count 2.66 mill/uL (4.70-6.10); White Blood Cell (WBC) Count 11.1 10x3/uL (4.8-10.8)
[2022-11-20 05:15] LABS: ALT (SGPT) 19 U/L (8-55); AST (SGOT) 20 U/L (5-34); Albumin 3.4 g/dL (3.5-5.0); Alkaline Phosphatase 57 U/L (40-110); Anion Gap 17 mmol/L (10-20); BUN (Urea Nitrogen) 7 mg/dL (8.4-25.7); Bilirubin, Total 0.7 mg/dL (0.2-1.2); CK (CPK) 298 U/L (30-200); Calc. Creatinine Clearance 107 mL/min (70-130); Calcium 7.1 mg/dL (7.8-10.44); Carbon Dioxide 21 mmol/L (22-29); Chloride 110 mmol/L (98-107); Estimated GFR 110; Globulin 2.2 g/dL (2.4-3.5); Glucose 133 mg/dL (70-105); Magnesium 1.6 mg/dL (1.6-2.6); Potassium 4.1 mmol/L (3.5-5.1); Protein, Total 5.6 g/dL (6.0-8.3); Sodium 144 mmol/L (136-145)
[2022-11-20 05:20] LABS: Phosphorus 1.1 mg/dL (2.3-4.7)
[2022-11-20] MEDS ORDERED: Magnesium Sulfate In Water 4 GM in Premix Bag 1 BAG IVPB SCH (06:30)
[2022-11-20] MEDS ORDERED: Electrolyte Replacement Protocol FS PRN (06:30)
[2022-11-20] MEDS ORDERED: Potassium Phosphate 30 MMOL in Sodium Chloride 0.9% 250 ML 250 ML IVPB SCH (07:00)
[2022-11-20] MEDS: Folic Acid 1 MG TAB PO SCH (08:42)
[2022-11-20] MEDS: Multivit, Therapeutic 1 TAB PO SCH (08:42)
[2022-11-20] MEDS: Morphine 2 MG/ML VIAL SLOW IVP PRN (08:43)
[2022-11-20] MEDS ORDERED: Vancomycin 1 GM in Premix Bag 1 BAG IVPB SCH (12:00)
[2022-11-20 12:12] LABS: Vancomycin, Random 12.9 ug/mL (See Comment)
[2022-11-20] MEDS: Calcium Carbonate 500 MG ChewTAB PO SCH ×2 (17:27→20:47)
[2022-11-20] MEDS: Thiamine 100 MG TAB PO SCH (17:27)
[2022-11-20] MEDS: Ipratropium/Albuterol 3 ML NEB NEB SCH (19:59)
[2022-11-21 05:07] LABS: Hemoglobin 7.7 g/dL (14.0-18.0); Mean Corpuscular HGB CONC 32.7 g/dL (32.0-36.0); Mean Corpuscular Hemoglobin 28.8 pg (27.0-31.0); Mean Corpuscular Volume 88.1 fl (78.0-98.0); Mean Platelet Volume 11.1 fL (7.4-10.4); Platelet Count 67 10x3/uL (130-400); RBC Distribution Width 13.8 % (11.5-14.5); Red Blood Cell (RBC) Count 2.69 mill/uL (4.70-6.10); White Blood Cell (WBC) Count 6.9 10x3/uL (4.8-10.8)
[2022-11-21 05:26] LABS: Anion Gap 12 mmol/L (10-20); BUN (Urea Nitrogen) 5 mg/dL (8.4-25.7); Calc. Creatinine Clearance 109 mL/min (70-130); Carbon Dioxide 23 mmol/L (22-29); Chloride 109 mmol/L (98-107); Estimated GFR 110; Glucose 146 mg/dL (70-105); Magnesium 1.6 mg/dL (1.6-2.6); Potassium 3.8 mmol/L (3.5-5.1); Sodium 140 mmol/L (136-145)
[2022-11-21 05:31] LABS: Calcium 6.9 mg/dL (7.8-10.44)
[2022-11-21 05:59] LABS: Hypochromia SLIGHT = 6-15 cells (100X) (0-5/hpf); Lymphocytes 25 % (21-51); MDiff Complete? YES; Monocytes 12 % (0-10); Neutrophil 63 % (42-75); Platelet Morphology Comment Appears Decreased; Schistocytes SLIGHT = 2-5 cells (100X) (0-1/hpf); Target Cells SLIGHT = 2-5 cells (100X) (0-1/hpf); Tear Drops SLIGHT = 2-5 cells (100X) (0-1/hpf)
[2022-11-21] MEDS ORDERED: Magnesium Sulfate In Water 4 GM in Premix Bag 1 BAG IVPB SCH (06:30)
[2022-11-21] MEDS ORDERED: Potassium Phosphate 30 MMOL in Sodium Chloride 0.9% 250 ML 250 ML IVPB SCH (06:45)
[2022-11-21] MEDS ORDERED: Calcium Chloride 13.6 MEQ in Sodium Chloride 0.9% 100 ML IVPB SCH (06:45)
[2022-11-21] MEDS: Ipratropium/Albuterol 3 ML NEB NEB SCH ×3 (08:32→20:24)
[2022-11-21] MEDS: Folic Acid 1 MG TAB PO SCH (08:48)
[2022-11-21] MEDS: Calcium Carbonate 500 MG ChewTAB PO SCH ×3 (08:49→20:37)
[2022-11-21] MEDS: Multivit, Therapeutic 1 TAB PO SCH (08:49)
[2022-11-21] MEDS: Thiamine 100 MG TAB PO SCH (14:58)
[2022-11-21 18:15] LABS: Albumin 2.6 g/dL (3.5-5.0); Anion Gap 13 mmol/L (10-20); BUN (Urea Nitrogen) 5 mg/dL (8.4-25.7); BUN/Creatinine Ratio 7.46; Calc. Creatinine Clearance 101 mL/min (70-130); Calcium 7.6 mg/dL (7.8-10.44); Carbon Dioxide 23 mmol/L (22-29); Chloride 109 mmol/L (98-107); Estimated GFR 108; Glucose 170 mg/dL (70-105); Phosphorus 2.3 mg/dL (2.3-4.7); Sodium 141 mmol/L (136-145)
[2022-11-22 07:10] LABS: Anion Gap 9 mmol/L (10-20); BUN (Urea Nitrogen) 6 mg/dL (8.4-25.7); Calc. Creatinine Clearance 105 mL/min (70-130); Calcium 7.9 mg/dL (7.8-10.44); Carbon Dioxide 27 mmol/L (22-29); Chloride 109 mmol/L (98-107); Estimated GFR 109; Glucose 164 mg/dL (70-105); Potassium 3.5 mmol/L (3.5-5.1); Sodium 141 mmol/L (136-145)
[2022-11-22] MEDS: Ipratropium/Albuterol 3 ML NEB NEB SCH ×3 (07:23→19:01)
[2022-11-22 07:43] LABS: Albumin 2.3 g/dL (3.5-5.0); Anion Gap 11 mmol/L (10-20); BUN (Urea Nitrogen) 6 mg/dL (8.4-25.7); BUN/Creatinine Ratio 9.38; Calc. Creatinine Clearance 105 mL/min (70-130); Calcium 7.7 mg/dL (7.8-10.44); Carbon Dioxide 25 mmol/L (22-29); Chloride 110 mmol/L (98-107); Estimated GFR 109; Glucose 163 mg/dL (70-105); Magnesium 1.5 mg/dL (1.6-2.6); Phosphorus 1.5 mg/dL (2.3-4.7); Potassium 3.6 mmol/L (3.5-5.1); Sodium 142 mmol/L (136-145)
[2022-11-22 07:48] LABS: Burr Cells SLIGHT = 2-5 cells (100X) (0-1/hpf); Hemoglobin 7.8 g/dL (14.0-18.0); Hypochromia SLIGHT = 6-15 cells (100X) (0-5/hpf); Lymphocytes 16 % (21-51); MDiff Complete? YES; Mean Corpuscular HGB CONC 32.7 g/dL (32.0-36.0); Mean Corpuscular Hemoglobin 28.6 pg (27.0-31.0); Mean Corpuscular Volume 87.2 fl (78.0-98.0); Mean Platelet Volume 10.6 fL (7.4-10.4); Monocytes 15 % (0-10); Neutrophil 66 % (42-75); Nucleated RBC 1 % (0); Platelet Count 81 10x3/uL (130-400); Platelet Morphology Comment Appears Decreased; Polychromasia SLIGHT = 2-3 cells (100X) (0-2/hpf); RBC Distribution Width 13.8 % (11.5-14.5); Reactive Lymphocytes 3 % (0-10); Red Blood Cell (RBC) Count 2.73 mill/uL (4.70-6.10); Target Cells SLIGHT = 2-5 cells (100X) (0-1/hpf); White Blood Cell (WBC) Count 6.3 10x3/uL (4.8-10.8)
[2022-11-22] MEDS ORDERED: Potassium Phosphate 30 MMOL in Sodium Chloride 0.9% 250 ML 250 ML IVPB SCH (08:00)
[2022-11-22] MEDS ORDERED: Magnesium Sulfate In Water 4 GM in Premix Bag 1 BAG IVPB SCH (08:00)
[2022-11-22] MEDS: Calcium Carbonate 500 MG ChewTAB PO SCH ×3 (08:02→20:15)
[2022-11-22] MEDS: Multivit, Therapeutic 1 TAB PO SCH (08:02)
[2022-11-22] MEDS: Folic Acid 1 MG TAB PO SCH (08:02)
[2022-11-22] MEDS: Thiamine 100 MG TAB PO SCH (15:49)
[2022-11-22 15:58] LABS: Anion Gap 11 mmol/L (10-20); BUN (Urea Nitrogen) 6 mg/dL (8.4-25.7); Calc. Creatinine Clearance 105 mL/min (70-130); Calcium 7.6 mg/dL (7.8-10.44); Carbon Dioxide 23 mmol/L (22-29); Chloride 110 mmol/L (98-107); Estimated GFR 109; Glucose 216 mg/dL (70-105); Magnesium 1.9 mg/dL (1.6-2.6); Phosphorus 2.9 mg/dL (2.3-4.7); Potassium 4.1 mmol/L (3.5-5.1); Sodium 140 mmol/L (136-145)
[2022-11-22] MEDS ORDERED: Magnesium 2 GM/50 ML(in water) 2 GM in Premix Bag 1 BAG IVPB SCH ×2 (18:15→19:15)
[2022-11-22] MEDS ORDERED: Spironolactone 100 MG TAB PO SCH (18:30)
[2022-11-22] MEDS ORDERED: Albumin 25% 25 GM/100 ML BOT IVPB SCH (18:30)
[2022-11-22] MEDS ORDERED: Epoetin (ESRD) 10,000 UNITS/ML VIAL SC SCH (18:45)
[2022-11-22] MEDS ORDERED: EPOETIN ALFA-EPBX (ESRD) 10,000 UNIT/ML VIAL SC SCH (18:45)
[2022-11-23] MEDS: Albumin 25% 25 GM/100 ML BOT IVPB SCH ×4 (00:17→17:52)
[2022-11-23] MEDS ORDERED: traMADol HCl 50 MG TAB PO SCH (01:45)
[2022-11-23 06:47] LABS: Anion Gap 9 mmol/L (10-20); BUN (Urea Nitrogen) 7 mg/dL (8.4-25.7); CK (CPK) 85 U/L (30-200); Calc. Creatinine Clearance 109 mL/min (70-130); Calcium 8.2 mg/dL (7.8-10.44); Carbon Dioxide 27 mmol/L (22-29); Chloride 109 mmol/L (98-107); Estimated GFR 110; Glucose 97 mg/dL (70-105); Magnesium 1.7 mg/dL (1.6-2.6); Phosphorus 2.2 mg/dL (2.3-4.7); Potassium 3.6 mmol/L (3.5-5.1); Sodium 141 mmol/L (136-145)
[2022-11-23] MEDS: Ipratropium/Albuterol 3 ML NEB NEB SCH ×3 (07:10→19:59)
[2022-11-23] MEDS ORDERED: Magnesium 2 GM/50 ML(in water) 2 GM in Premix Bag 1 BAG IVPB SCH (08:00)
[2022-11-23] MEDS: Calcium Carbonate 500 MG ChewTAB PO SCH ×3 (08:32→20:03)
[2022-11-23] MEDS: Multivit, Therapeutic 1 TAB PO SCH (08:33)
[2022-11-23] MEDS: Folic Acid 1 MG TAB PO SCH (08:33)
[2022-11-23] MEDS: Spironolactone 100 MG TAB PO SCH (08:42)
[2022-11-23] MEDS ORDERED: Potassium Phosphate 30 MMOL in Sodium Chloride 0.9% 500 ML IVPB SCH (09:00)
[2022-11-23] MEDS: Thiamine 100 MG TAB PO SCH (14:15)
[2022-11-24 06:56] LABS: Anion Gap 10 mmol/L (10-20); BUN (Urea Nitrogen) 6 mg/dL (8.4-25.7); Calc. Creatinine Clearance 121 mL/min (70-130); Calcium 7.9 mg/dL (7.8-10.44); Carbon Dioxide 23 mmol/L (22-29); Chloride 109 mmol/L (98-107); Estimated GFR 110; Glucose 90 mg/dL (70-105); Magnesium 1.4 mg/dL (1.6-2.6); Potassium 3.4 mmol/L (3.5-5.1); Sodium 139 mmol/L (136-145)
[2022-11-24 06:59] LABS: Hemoglobin 6.7 g/dL (14.0-18.0); Lymphocytes 33 % (21-51); MDiff Complete? YES; Mean Corpuscular HGB CONC 32.8 g/dL (32.0-36.0); Mean Corpuscular Hemoglobin 28.7 pg (27.0-31.0); Mean Corpuscular Volume 87.3 fl (78.0-98.0); Mean Platelet Volume 10.1 fL (7.4-10.4); Monocytes 13 % (0-10); Neutrophil 53 % (42-75); Platelet Count 121 10x3/uL (130-400); Platelet Morphology Comment Appears Decreased; RBC Distribution Width 14.1 % (11.5-14.5); RBC Morphology Normal; Red Blood Cell (RBC) Count 2.34 mill/uL (4.70-6.10); White Blood Cell (WBC) Count 6.2 10x3/uL (4.8-10.8)
[2022-11-24] MEDS: Ipratropium/Albuterol 3 ML NEB NEB SCH ×3 (07:32→18:25)
[2022-11-24] MEDS ORDERED: Potassium Chloride 20 MEQ TAB PO SCH (08:00)
[2022-11-24] MEDS: Folic Acid 1 MG TAB PO SCH (08:44)
[2022-11-24] MEDS: Spironolactone 100 MG TAB PO SCH (08:44)
[2022-11-24] MEDS: Multivit, Therapeutic 1 TAB PO SCH (08:44)
[2022-11-24] MEDS: Calcium Carbonate 500 MG ChewTAB PO SCH ×3 (08:44→19:49)
[2022-11-24] MEDS ORDERED: Magnesium Sulfate In Water 4 GM in Premix Bag 1 BAG IVPB SCH ×2 (09:00→18:30)
[2022-11-24] MEDS ORDERED: Magnesium Sulfate 3 GM in Sodium Chloride 0.9% 100 ML IVPB SCH ×2 (10:00→18:15)
[2022-11-24] MEDS: Potassium Chloride 20 MEQ TAB PO SCH ×2 (10:39→14:20)
[2022-11-24] MEDS: Thiamine 100 MG TAB PO SCH (14:20)
[2022-11-24 17:39] LABS: Hemoglobin 9.2 g/dL (14.0-18.0); Platelet Count 129 10x3/uL (130-400)
[2022-11-24 17:59] LABS: Magnesium 1.7 mg/dL (1.6-2.6); Phosphorus 2.2 mg/dL (2.3-4.7); Potassium 3.8 mmol/L (3.5-5.1)
[2022-11-24] MEDS ORDERED: Potassium Phosphate 15 MMOL in Sodium Chloride 0.9% 250 ML 250 ML IVPB SCH (18:15)
[2022-11-25] MEDS: Ipratropium/Albuterol 3 ML NEB NEB PRN (02:50)
[2022-11-25] MEDS: Ipratropium/Albuterol 3 ML NEB NEB SCH ×3 (07:01→18:48)
[2022-11-25 07:17] LABS: ALT (SGPT) 18 U/L (8-55); AST (SGOT) 19 U/L (5-34); Albumin 2.8 g/dL (3.5-5.0); Alkaline Phosphatase 71 U/L (40-110); Anion Gap 12 mmol/L (10-20); BUN (Urea Nitrogen) 7 mg/dL (8.4-25.7); Bilirubin, Total 0.8 mg/dL (0.2-1.2); Calc. Creatinine Clearance 114 mL/min (70-130); Calcium 8.2 mg/dL (7.8-10.44); Carbon Dioxide 23 mmol/L (22-29); Chloride 111 mmol/L (98-107); Estimated GFR 108; Globulin 2.1 g/dL (2.4-3.5); Glucose 94 mg/dL (70-105); Phosphorus 2.5 mg/dL (2.3-4.7); Potassium 4.5 mmol/L (3.5-5.1); Protein, Total 4.9 g/dL (6.0-8.3); Sodium 141 mmol/L (136-145)
[2022-11-25 07:41] LABS: Hemoglobin 9.5 g/dL (14.0-18.0); Mean Corpuscular HGB CONC 32.9 g/dL (32.0-36.0); Mean Corpuscular Hemoglobin 28.5 pg (27.0-31.0); Mean Corpuscular Volume 86.8 fl (78.0-98.0); Mean Platelet Volume 10.3 fL (7.4-10.4); Platelet Count 140 10x3/uL (130-400); RBC Distribution Width 15.1 % (11.5-14.5); Red Blood Cell (RBC) Count 3.34 mill/uL (4.70-6.10); White Blood Cell (WBC) Count 8.2 10x3/uL (4.8-10.8)
[2022-11-25 07:42] LABS: Band 1 % (5-11); Lymphocytes 16 % (21-51); MDiff Complete? YES; Monocytes 20 % (0-10); Neutrophil 63 % (42-75); Target Cells SLIGHT = 2-5 cells (100X) (0-1/hpf)
[2022-11-25] MEDS ORDERED: Magnesium 2 GM/50 ML(in water) 2 GM in Premix Bag 1 BAG IVPB SCH (08:00)
[2022-11-25] MEDS: Folic Acid 1 MG TAB PO SCH (08:21)
[2022-11-25] MEDS: Potassium Chloride 20 MEQ TAB PO SCH (08:22)
[2022-11-25] MEDS: Multivit, Therapeutic 1 TAB PO SCH (08:22)
[2022-11-25] MEDS: Thiamine 100 MG TAB PO SCH (08:22)
[2022-11-25] MEDS: Calcium Carbonate 500 MG ChewTAB PO SCH ×3 (08:22→22:10)
[2022-11-25] MEDS: Spironolactone 100 MG TAB PO SCH (09:21)
[2022-11-25] MEDS: Ergocalciferol 1.25 MG(50,000 UNITS) CAP PO SCH (11:40)
[2022-11-25] MEDS ORDERED: Torsemide 10 MG TAB PO SCH (12:00)
[2022-11-26 07:56] LABS: Albumin 2.6 g/dL (3.5-5.0); Anion Gap 8 mmol/L (10-20); BUN (Urea Nitrogen) 8 mg/dL (8.4-25.7); BUN/Creatinine Ratio 13.56; Calc. Creatinine Clearance 123 mL/min (70-130); Calcium 8.1 mg/dL (7.8-10.44); Carbon Dioxide 24 mmol/L (22-29); Chloride 111 mmol/L (98-107); Estimated GFR 112; Glucose 92 mg/dL (70-105); Phosphorus 2.6 mg/dL (2.3-4.7); Potassium 3.4 mmol/L (3.5-5.1); Sodium 140 mmol/L (136-145)
[2022-11-26] MEDS ORDERED: Potassium Chloride 20 MEQ TAB PO SCH (08:15)
[2022-11-26] MEDS: Torsemide 10 MG TAB PO SCH (09:03)
[2022-11-26] MEDS: Multivit, Therapeutic 1 TAB PO SCH (09:03)
[2022-11-26] MEDS: Spironolactone 100 MG TAB PO SCH ×3 (09:03→22:04)
[2022-11-26] MEDS: Folic Acid 1 MG TAB PO SCH (09:03)
[2022-11-26] MEDS: Calcium Carbonate 500 MG ChewTAB PO SCH ×3 (09:04→22:04)
[2022-11-26] MEDS: Potassium Chloride 20 MEQ TAB PO SCH (09:07)
[2022-11-26] MEDS: Thiamine 100 MG TAB PO SCH (15:35)
[2022-11-27 07:10] LABS: Hemoglobin 8.5 g/dL (14.0-18.0); Mean Corpuscular HGB CONC 31.9 g/dL (32.0-36.0); Mean Corpuscular Hemoglobin 28.5 pg (27.0-31.0); Mean Corpuscular Volume 89.2 fl (78.0-98.0); Mean Platelet Volume 8.7 fL (7.4-10.4); Platelet Count 170 10x3/uL (130-400); RBC Distribution Width 16.1 % (11.5-14.5); Red Blood Cell (RBC) Count 2.98 mill/uL (4.70-6.10); White Blood Cell (WBC) Count 8.1 10x3/uL (4.8-10.8)
[2022-11-27 07:24] LABS: Albumin 2.4 g/dL (3.5-5.0); Anion Gap 11 mmol/L (10-20); BUN (Urea Nitrogen) 9 mg/dL (8.4-25.7); BUN/Creatinine Ratio 13.24; Calc. Creatinine Clearance 106 mL/min (70-130); Calcium 7.6 mg/dL (7.8-10.44); Carbon Dioxide 22 mmol/L (22-29); Chloride 110 mmol/L (98-107); Estimated GFR 107; Glucose 95 mg/dL (70-105); Phosphorus 2.7 mg/dL (2.3-4.7); Potassium 3.5 mmol/L (3.5-5.1); Sodium 139 mmol/L (136-145)
[2022-11-27] MEDS ORDERED: Magnesium Sulfate 4 GM in Sodium Chloride 0.9% 250 ML 250 ML IVPB SCH (08:15)
[2022-11-27 08:31] LABS: Band 7 % (5-11); Hypochromia SLIGHT = 6-15 cells (100X) (0-5/hpf); Lymphocytes 15 % (21-51); MDiff Complete? YES; Monocytes 9 % (0-10); Neutrophil 67 % (42-75); Platelet Morphology Comment Appears Adequate; Polychromasia SLIGHT = 2-3 cells (100X) (0-2/hpf); Reactive Lymphocytes 2 % (0-10); Target Cells SLIGHT = 2-5 cells (100X) (0-1/hpf)
[2022-11-27] MEDS: Folic Acid 1 MG TAB PO SCH (08:53)
[2022-11-27] MEDS: Potassium Chloride 20 MEQ TAB PO SCH (08:54)
[2022-11-27] MEDS: Spironolactone 100 MG TAB PO SCH ×2 (08:54→20:21)
[2022-11-27] MEDS: Multivit, Therapeutic 1 TAB PO SCH (08:54)
[2022-11-27] MEDS: Calcium Carbonate 500 MG ChewTAB PO SCH ×3 (08:54→20:21)
[2022-11-27] MEDS: Torsemide 10 MG TAB PO SCH (08:55)
[2022-11-27] MEDS ORDERED: Magnesium Sulfate In Water 4 GM in Sodium Chloride 0.9% 250 ML 250 ML IVPB SCH (10:00)
[2022-11-27] MEDS ORDERED: Magnesium Sulfate In Water 4 GM in Premix Bag 1 BAG IVPB SCH (10:00)
[2022-11-27] MEDS ORDERED: Potassium Bicarbonate/Cit Ac 20 MEQ TAB PO SCH (12:45)
[2022-11-27] MEDS ORDERED: Torsemide 10 MG TAB PO SCH (13:15)
[2022-11-27] MEDS: Thiamine 100 MG TAB PO SCH (14:49)
[2022-11-27 17:13] LABS: Magnesium 1.5 mg/dL (1.6-2.6); Potassium 3.9 mmol/L (3.5-5.1)
[2022-11-28] MEDS ORDERED: Magnesium 2 GM/50 ML(in water) 2 GM in Premix Bag 1 BAG IVPB SCH ×2 (05:00→08:00)
[2022-11-28 06:21] LABS: Hemoglobin 9.2 g/dL (14.0-18.0)
[2022-11-28 06:40] LABS: Anion Gap 11 mmol/L (10-20); BUN (Urea Nitrogen) 8 mg/dL (8.4-25.7); Calc. Creatinine Clearance 100 mL/min (70-130); Calcium 7.8 mg/dL (7.8-10.44); Carbon Dioxide 26 mmol/L (22-29); Chloride 104 mmol/L (98-107); Estimated GFR 105; Glucose 114 mg/dL (70-105); Magnesium 1.5 mg/dL (1.6-2.6); Potassium 3.4 mmol/L (3.5-5.1); Sodium 138 mmol/L (136-145)
[2022-11-28] MEDS ORDERED: Potassium Chloride 20 MEQ TAB PO SCH (08:00)
[2022-11-28 08:11] LABS: Phosphorus 2.2 mg/dL (2.3-4.7)
[2022-11-28] MEDS: Potassium Chloride 20 MEQ TAB PO SCH (08:22)
[2022-11-28] MEDS: Multivit, Therapeutic 1 TAB PO SCH (08:22)
[2022-11-28] MEDS: Calcium Carbonate 500 MG ChewTAB PO SCH ×3 (08:22→20:44)
[2022-11-28] MEDS: Torsemide 20 MG TAB PO SCH (08:22)
[2022-11-28] MEDS: Spironolactone 100 MG TAB PO SCH ×2 (08:23→20:44)
[2022-11-28] MEDS: Folic Acid 1 MG TAB PO SCH (08:23)
[2022-11-28] MEDS ORDERED: Potassium Phosphate 30 MMOL in Sodium Chloride 0.9% 250 ML 250 ML IVPB SCH (09:00)
[2022-11-28 10:10] VITALS: BMI 20.2
[2022-11-28] MEDS: Thiamine 100 MG TAB PO SCH (14:30)
[2022-11-29] MEDS: Spironolactone 100 MG TAB PO SCH ×2 (08:09→20:49)
[2022-11-29] MEDS: Multivit, Therapeutic 1 TAB PO SCH (08:09)
[2022-11-29] MEDS: Potassium Chloride 20 MEQ TAB PO SCH (08:09)
[2022-11-29] MEDS: Torsemide 20 MG TAB PO SCH (08:09)
[2022-11-29] MEDS: Calcium Carbonate 500 MG ChewTAB PO SCH ×3 (08:09→20:49)
[2022-11-29] MEDS: Folic Acid 1 MG TAB PO SCH (08:09)
[2022-11-29 08:45] LABS: Anion Gap 11 mmol/L (10-20); BUN (Urea Nitrogen) 9 mg/dL (8.4-25.7); Calc. Creatinine Clearance 109 mL/min (70-130); Calcium 8.2 mg/dL (7.8-10.44); Carbon Dioxide 27 mmol/L (22-29); Chloride 105 mmol/L (98-107); Estimated GFR 108; Glucose 79 mg/dL (70-105); Magnesium 1.2 mg/dL (1.6-2.6); Phosphorus 2.2 mg/dL (2.3-4.7); Potassium 3.7 mmol/L (3.5-5.1); Sodium 139 mmol/L (136-145)
[2022-11-29] MEDS ORDERED: Magnesium Sulfate In Water 4 GM in Premix Bag 1 BAG IVPB SCH ×2 (09:00→10:00)
[2022-11-29] MEDS ORDERED: Potassium Phosphate 30 MMOL in Sodium Chloride 0.9% 250 ML 250 ML IVPB SCH (10:00)
[2022-11-29] MEDS: Thiamine 100 MG TAB PO SCH (14:53)
[2022-11-29 19:15] LABS: Hemoglobin 9.4 g/dL (14.0-18.0); Platelet Count 211 10x3/uL (130-400)
[2022-11-30 08:30] LABS: Phosphorus 2.3 mg/dL (2.3-4.7)
[2022-11-30 08:33] LABS: Anion Gap 12 mmol/L (10-20); BUN (Urea Nitrogen) 8 mg/dL (8.4-25.7); Calc. Creatinine Clearance 112 mL/min (70-130); Calcium 8.4 mg/dL (7.8-10.44); Carbon Dioxide 24 mmol/L (22-29); Chloride 105 mmol/L (98-107); Estimated GFR 109; Glucose 100 mg/dL (70-105); Magnesium 1.3 mg/dL (1.6-2.6); Potassium 4.1 mmol/L (3.5-5.1); Sodium 137 mmol/L (136-145)
[2022-11-30] MEDS: Potassium Chloride 20 MEQ TAB PO SCH (08:49)
[2022-11-30] MEDS: Spironolactone 100 MG TAB PO SCH ×2 (08:50→21:06)
[2022-11-30] MEDS: Folic Acid 1 MG TAB PO SCH (08:50)
[2022-11-30] MEDS: Calcium Carbonate 500 MG ChewTAB PO SCH ×3 (08:50→21:06)
[2022-11-30] MEDS: Torsemide 20 MG TAB PO SCH (08:50)
[2022-11-30] MEDS: Multivit, Therapeutic 1 TAB PO SCH (08:50)
[2022-11-30] MEDS ORDERED: Potassium Phosphate 30 MMOL in Sodium Chloride 0.9% 250 ML 250 ML IVPB SCH (11:00)
[2022-11-30] MEDS: Magnesium Sulfate In Water 4 GM in Premix Bag 1 BAG IVPB SCH ×2 (11:39→19:09)
[2022-11-30] MEDS: Thiamine 100 MG TAB PO SCH (14:25)
[2022-12-01 07:49] LABS: Anion Gap 12 mmol/L (10-20); BUN (Urea Nitrogen) 10 mg/dL (8.4-25.7); Calc. Creatinine Clearance 96 mL/min (70-130); Calcium 8.6 mg/dL (7.8-10.44); Carbon Dioxide 25 mmol/L (22-29); Chloride 103 mmol/L (98-107); Estimated GFR 104; Glucose 98 mg/dL (70-105); Potassium 4.3 mmol/L (3.5-5.1); Sodium 136 mmol/L (136-145)
[2022-12-01] MEDS: PHOS-NAK 1 PKT PACK PO SCH (09:34)
[2022-12-01] MEDS: Multivit, Therapeutic 1 TAB PO SCH (09:34)
[2022-12-01] MEDS: Torsemide 10 MG TAB PO SCH (09:34)
[2022-12-01] MEDS: Spironolactone 100 MG TAB PO SCH ×2 (09:34→21:35)
[2022-12-01] MEDS: Calcium Carbonate 500 MG ChewTAB PO SCH ×3 (09:34→21:35)
[2022-12-01] MEDS: Folic Acid 1 MG TAB PO SCH (09:34)
[2022-12-01 09:37] LABS: Magnesium 2.1 mg/dL (1.6-2.6)
[2022-12-01 09:52] LABS: Phosphorus 3.5 mg/dL (2.3-4.7)
[2022-12-01] MEDS: Thiamine 100 MG TAB PO SCH (14:34)
[2022-12-02 06:06] LABS: Anion Gap 11 mmol/L (10-20); BUN (Urea Nitrogen) 11 mg/dL (8.4-25.7); Calc. Creatinine Clearance 97 mL/min (70-130); Calcium 8.8 mg/dL (7.8-10.44); Carbon Dioxide 28 mmol/L (22-29); Chloride 104 mmol/L (98-107); Estimated GFR 104; Glucose 86 mg/dL (70-105); Potassium 4.2 mmol/L (3.5-5.1); Sodium 139 mmol/L (136-145)
[2022-12-02] MEDS ORDERED: Magnesium Oxide 400 MG TAB PO SCH (09:00)
[2022-12-02] MEDS ORDERED: Thiamine 100 MG TAB PO SCH (09:00)
[2022-12-02] MEDS: PHOS-NAK 1 PKT PACK PO SCH (09:22)
[2022-12-02] MEDS: Folic Acid 1 MG TAB PO SCH (09:22)
[2022-12-02] MEDS: Multivit, Therapeutic 1 TAB PO SCH (09:23)
[2022-12-02] MEDS: Spironolactone 100 MG TAB PO SCH (09:23)
[2022-12-02] MEDS: Torsemide 10 MG TAB PO SCH (09:23)
[2022-12-02] MEDS: Calcium Carbonate 500 MG ChewTAB PO SCH ×2 (09:23→15:31)
[2022-12-02] MEDS: Ergocalciferol 1.25 MG(50,000 UNITS) CAP PO SCH (09:24)
[2022-12-02 13:20] VITALS: BP 100/68; TEMP 98.3
[2022-12-02 15:46] LABS: Hemoglobin 10.7 g/dL (14.0-18.0); Platelet Count 245 10x3/uL (130-400)
== END 2022-12-02 18:55 | disposition home or self-care (01) | DRG 432 ==
LOC: ERS 09:21 → 2NO 11:11 → T4-A 11-21 19:45
PROVIDERS: ADMIT Family Medicine; ATTEND Family Medicine
PROC: 30233P1 Transfusion of Nonautologous Frozen Red Cells into Peripheral Vein, Percutaneous Approach (ICD-10-PCS; principal; 2022-11-17)
PROC: 30233N1 Transfusion of Nonautologous Red Blood Cells into Peripheral Vein, Percutaneous Approach (ICD-10-PCS; 2022-11-17)
DX: K70.9 Alcoholic liver disease, unspecified (principal); E43 Unspecified severe protein-calorie malnutrition; I61.0 Nontraumatic intracerebral hemorrhage in hemisphere, subcortical; Q28.3 Other malformations of cerebral vessels; M62.82 Rhabdomyolysis; K86.1 Other chronic pancreatitis; R18.8 Other ascites; J91.8 Pleural effusion in other conditions classified elsewhere; D68.4 Acquired coagulation factor deficiency; E44.0 Moderate protein-calorie malnutrition; D50.9 Iron deficiency anemia, unspecified; R55 Syncope and collapse; Z68.20 Body mass index [BMI] 20.0-20.9, adult; F10.10 Alcohol abuse, uncomplicated; F14.10 Cocaine abuse, uncomplicated; E87.70 Fluid overload, unspecified; G89.29 Other chronic pain; M54.50 Low back pain, unspecified; R29.6 Repeated falls; E86.0 Dehydration; E87.6 Hypokalemia; E55.9 Vitamin D deficiency, unspecified; I95.89 Other hypotension; Z80.3 Family history of malignant neoplasm of breast; Z80.51 Family history of malignant neoplasm of kidney; Z83.3 Family history of diabetes mellitus; Z82.49 Family history of ischemic heart disease and other diseases of the circulatory system; Z91.81 History of falling; Z91.018 Allergy to other foods; Z79.899 Other long term (current) drug therapy
CPT/HCPCS: 36415; 36416; 36430; 70450; 70553; 71045; 71275; 74177; 76705; 80048; 80053; 80069; 80074; 80202; 80306; 80307; 81001; 82105; 82274; 82306; 82378; 82550; 82728; 82805; 83540; 83550; 83605; 83690; 83735; 83880; 84100; 84443; 84484; 85014; 85018; 85025; 85049; 85379; 85610; 85730; 86301; 86780; 86850; 86900; 86901; 87040; 87324; 87389; 87449; 93005; 93010; 93306; 93880; 94640; 96360; A9577; J0611; J0692; J2272; J3370; J3370-JW; J3430; J3475; J3480; J3490; J7030; J7050; J7611; J7620; P9016; P9047; P9059; Q5105; Q9966

== ENCOUNTER 2023-04-21 13:41 | Inpatient (IN) | payer MEDICAID, OTHER ==
[2023-04-21 14:59] LABS: #Monocytes 0.9 thou/uL (0.11-0.59); #Neutrophils 5.6 thou/uL (1.40-6.50); %Basophils 0.1 % (0.0-1.0); %Monocytes 11.1 % (0.0-10.0); %Neutrophils 72.3 % (42.0-75.0); Hematocrit 29.6 % (42.0-52.0); Hemoglobin 9.3 g/dL (14.0-18.0); Mean Corpuscular HGB CONC 31.4 g/dL (32.0-36.0); Mean Corpuscular Hemoglobin 28.5 pg (27.0-31.0); Mean Corpuscular Volume 90.8 fl (78.0-98.0); Mean Platelet Volume 10.9 fL (7.4-10.4); Platelet Count 118 10x3/uL (130-400); RBC Distribution Width 16.9 % (11.5-14.5); Red Blood Cell (RBC) Count 3.26 mill/uL (4.70-6.10); White Blood Cell (WBC) Count 7.7 10x3/uL (4.8-10.8)
[2023-04-21 15:20] LABS: ALT (SGPT) 25 U/L (8-55); AST (SGOT) 28 U/L (5-34); Albumin 1.7 g/dL (3.5-5.0); Alkaline Phosphatase 197 U/L (40-110); Anion Gap 13 mmol/L (10-20); BUN (Urea Nitrogen) 12 mg/dL (8.4-25.7); Bilirubin, Total 0.5 mg/dL (0.2-1.2); Calc. Creatinine Clearance 0 mL/min (70-130); Carbon Dioxide 21 mmol/L (22-29); Chloride 113 mmol/L (98-107); Estimated GFR 106; Globulin 3.9 g/dL (2.4-3.5); Lipase Less than 4 U/L (8-78); Protein, Total 5.6 g/dL (6.0-8.3); Sodium 144 mmol/L (136-145)
[2023-04-21 15:24] LABS: Troponin I Less than 0.010 ng/mL (< 0.028)
[2023-04-21 15:42] LABS: Calcium 6.6 mg/dL (7.8-10.44); Glucose 44 mg/dL (70-105); Potassium 2.6 mmol/L (3.5-5.1)
[2023-04-21] MEDS ORDERED: Nitroglycerin 2% Ointment 1 INCH/1 GM Packet ONE (16:00)
[2023-04-21] MEDS ORDERED: Furosemide 40 MG/4 ML VIAL ONE (16:00)
[2023-04-21] MEDS ORDERED: Calcium Gluc 4.6 MEQ/10 ML (100 MG/ML) ONE (16:00)
[2023-04-21] MEDS ORDERED: Dextrose 50% Abboject 50 ML SYRINGE ONE (16:08)
[2023-04-21] MEDS ORDERED: Potassium Chloride 20 MEQ TAB ONE (16:08)
[2023-04-21 17:01] LABS: INR-International Normal Ratio 2.5; Prothrombin Time 28.4 sec (12.0-14.7)
[2023-04-21 17:02] LABS: PTT 60.5 sec (22.9-36.1)
[2023-04-21 17:09] LABS: Phosphorus 2.6 mg/dL (2.3-4.7)
[2023-04-21 17:14] LABS: Bacteria/HPF None Seen HPF (None Seen); Bilirubin Negative (Negative); Blood, Urine Negative (Negative); CAUTI Indications for Culture Dysuria,urgency,freq; Glucose, Urine (Dipstick) Normal (Negative); Ketone, Urine Negative (Negative); Leukocyte 500 Leu/uL (Negative); Nitrite 2+ (Negative); Protein, Urine (Dipstick) 20 mg/dL (Neg-Trace); RBC/HPF 0-3 HPF (0-3); Specific Gravity, Urine 1.014 (1.002-1.036); Squamous Epithelial None Seen HPF (0-3); Urobilinogen Normal mg/dL (Less than 2); WBC/HPF Greater than 50 HPF (0-3)
[2023-04-21 17:16] LABS: Clarity Cloudy (Clear)
[2023-04-21 17:17] LABS: Urine Culture Reflex Yes Yes
[2023-04-21 17:18] LABS: Acetaminophen Less than 10 mcg/mL (10.0-30.0); Alcohol Less than 10.0 mg/dL (Less than 10); Salicylate Less than 8.0 mg/dL (15.0-30.0)
[2023-04-21] MEDS ORDERED: Magnesium 2 GM/50 ML BAG (IN WATER) ONE (17:27)
[2023-04-21] MEDS ORDERED: Lorazepam 1 MG TAB PO PRN (17:45)
[2023-04-21] MEDS ORDERED: Ondansetron ODT 4 MG TAB PO PRN (17:45)
[2023-04-21] MEDS ORDERED: Acetaminophen 325 MG TAB PO PRN (17:45)
[2023-04-21] MEDS ORDERED: Electrolyte Replacement Protocol 1 EACH FS SCH (17:45)
[2023-04-21] MEDS ORDERED: Lorazepam 2 MG/ML VIAL IM PRN (17:45)
[2023-04-21] MEDS ORDERED: Magnesium 2 GM/50 ML(in water) 2 GM in Premix Bag 1 BAG IVPB SCH ×2 (18:00→22:30)
[2023-04-21] MEDS ORDERED: Dextrose 50% Abboject 50 ML SYRINGE SLOW IVP PRN (19:33)
[2023-04-21] MEDS ORDERED: Dextrose 5% in Water 1,000 ML IV PRN (19:33)
[2023-04-21] MEDS ORDERED: Glucagon 1 MG/ML KIT IM PRN (19:33)
[2023-04-21] MEDS ORDERED: Potassium Chloride 20 MEQ TAB PO SCH (22:00)
[2023-04-21] MEDS ORDERED: Dextrose 10% in Water 1,000 ML IV SCH (22:00)
[2023-04-21 22:27] LABS: Anion Gap 13 mmol/L (10-20); BUN (Urea Nitrogen) 12 mg/dL (8.4-25.7); Calc. Creatinine Clearance 0 mL/min (70-130); Carbon Dioxide 22 mmol/L (22-29); Chloride 111 mmol/L (98-107); Estimated GFR 106; Glucose 116 mg/dL (70-105); Magnesium 1.4 mg/dL (1.6-2.6); Sodium 143 mmol/L (136-145)
[2023-04-21] MEDS: Multivit, Therapeutic 1 TAB PO SCH (22:27)
[2023-04-21] MEDS: Folic Acid 1 MG TAB PO SCH (22:27)
[2023-04-21] MEDS: Albumin 25% 25 GM/100 ML BOT IVPB SCH (22:29)
[2023-04-21 22:35] LABS: Calcium 6.7 mg/dL (7.8-10.44); Potassium 2.5 mmol/L (3.5-5.1)
[2023-04-21] MEDS: Thiamine HCl 200 MG/2 ML VIAL SLOW IVP SCH (22:38)
[2023-04-21] MEDS: cefTRIAXone\\ROCEPHIN 1 GM in Sodium Chloride 0.9% 100 ML IVPB SCH (22:39)
[2023-04-21] MEDS ORDERED: Magnesium Sulfate In Water 4 GM in Premix Bag 1 BAG IVPB SCH (23:00)
[2023-04-22] MEDS: Ipratropium/Albuterol 3 ML NEB NEB PRN ×2 (00:02→13:42)
[2023-04-22] MEDS: Albumin 25% 25 GM/100 ML BOT IVPB SCH ×4 (01:09→13:52)
[2023-04-22] MEDS ORDERED: Spironolactone 100 MG TAB PO SCH (01:15)
[2023-04-22] MEDS ORDERED: Furosemide 20 MG/2 ML VIAL SLOW IVP SCH (01:15)
[2023-04-22 04:39] LABS: #Monocytes 0.9 thou/uL (0.11-0.59); #Neutrophils 5.8 thou/uL (1.40-6.50); %Basophils 0.1 % (0.0-1.0); %Lymphocytes 16.7 % (21.0-51.0); %Neutrophils 71.5 % (42.0-75.0); Hematocrit 23.6 % (42.0-52.0); Hemoglobin 7.6 g/dL (14.0-18.0); Mean Corpuscular HGB CONC 32.2 g/dL (32.0-36.0); Mean Corpuscular Hemoglobin 28.4 pg (27.0-31.0); Mean Corpuscular Volume 88.1 fl (78.0-98.0); Mean Platelet Volume 11.3 fL (7.4-10.4); Platelet Count 110 10x3/uL (130-400); RBC Distribution Width 16.9 % (11.5-14.5); Red Blood Cell (RBC) Count 2.68 mill/uL (4.70-6.10); White Blood Cell (WBC) Count 8.1 10x3/uL (4.8-10.8)
[2023-04-22 04:57] LABS: Phosphorus 2.6 mg/dL (2.3-4.7)
[2023-04-22 05:00] LABS: ALT (SGPT) 20 U/L (8-55); AST (SGOT) 18 U/L (5-34); Albumin 2.9 g/dL (3.5-5.0); Alkaline Phosphatase 161 U/L (40-110); Anion Gap 12 mmol/L (10-20); BUN (Urea Nitrogen) 12 mg/dL (8.4-25.7); Bilirubin, Total 0.6 mg/dL (0.2-1.2); Calc. Creatinine Clearance 104 mL/min (70-130); Calcium 7.6 mg/dL (7.8-10.44); Carbon Dioxide 25 mmol/L (22-29); Chloride 108 mmol/L (98-107); Estimated GFR 104; Globulin 3.3 g/dL (2.4-3.5); Glucose 114 mg/dL (70-105); Magnesium 1.8 mg/dL (1.6-2.6); Protein, Total 6.2 g/dL (6.0-8.3); Sodium 143 mmol/L (136-145)
[2023-04-22 05:21] LABS: Potassium 2.3 mmol/L (3.5-5.1)
[2023-04-22] MEDS: Potassium Chloride 20 MEQ TAB PO SCH ×2 (05:45→09:54)
[2023-04-22] MEDS ORDERED: Magnesium 2 GM/50 ML(in water) 2 GM in Premix Bag 1 BAG IVPB SCH (05:45)
[2023-04-22] MEDS ORDERED: Furosemide 40 MG/4 ML VIAL SLOW IVP SCH (06:00)
[2023-04-22 07:55] LABS: Amphetamine Not Detected (NotDetected); Barbiturates Screen Not Detected (NotDetected); Benzodiazepine Screen Not Detected (NotDetected); Cocaine Metabolite Screen Detected (NotDetected); Methadone Not Detected (NotDetected); Methamphetamine Not Detected (NotDetected); Opiate Screen Not Detected (NotDetected); Oxycodone Screen Not Detected (NotDetected); Phencyclidine (PCP) Not Detected (NotDetected); THC/Cannabinoid Screen Not Detected (NotDetected); Tricyclic Screen Not Detected (NotDetected)
[2023-04-22] MEDS ORDERED: Potassium Phosphate 30 MMOL in Sodium Chloride 0.9% 250 ML 250 ML IVPB SCH (08:30)
[2023-04-22] MEDS ORDERED: Albumin 25% 25 GM/100 ML BOT IVPB SCH (09:30)
[2023-04-22] MEDS ORDERED: Phytonadione 5 MG TAB PO SCH (12:30)
[2023-04-22 15:22] LABS: Potassium 3.2 mmol/L (3.5-5.1)
[2023-04-22] MEDS ORDERED: Potassium Bicarbonate/Cit Ac 20 MEQ TAB PO SCH (15:30)
[2023-04-22] MEDS ORDERED: Potassium Phosphate 30 MMOL in Sodium Chloride 0.9% 500 ML IVPB SCH (16:00)
[2023-04-22] MEDS: Spironolactone 25 MG TAB PO SCH (16:31)
[2023-04-22] MEDS: Thiamine HCl 200 MG/2 ML VIAL SLOW IVP SCH (17:12)
[2023-04-22] MEDS ORDERED: Lorazepam 1 MG TAB PO PRN (17:45)
[2023-04-22] MEDS: Folic Acid 1 MG TAB PO SCH (20:51)
[2023-04-22] MEDS: Multivit, Therapeutic 1 TAB PO SCH (20:51)
[2023-04-22] MEDS: Cholecalciferol 1,000 UNITS (25 MCG) TAB PO SCH (20:51)
[2023-04-22] MEDS: Cyanocobalamin (Vitamin B-12) 1,000 MCG TAB PO SCH (20:51)
[2023-04-22] MEDS: cefTRIAXone\\ROCEPHIN 1 GM in Sodium Chloride 0.9% 100 ML IVPB SCH (22:01)
[2023-04-23 04:53] LABS: #Monocytes 0.9 thou/uL (0.11-0.59); #Neutrophils 5.7 thou/uL (1.40-6.50); %Basophils 0.1 % (0.0-1.0); %Lymphocytes 13.7 % (21.0-51.0); %Monocytes 11.4 % (0.0-10.0); %Neutrophils 74.3 % (42.0-75.0); Hematocrit 23.2 % (42.0-52.0); Hemoglobin 7.5 g/dL (14.0-18.0); Mean Corpuscular HGB CONC 32.3 g/dL (32.0-36.0); Mean Corpuscular Hemoglobin 27.9 pg (27.0-31.0); Mean Corpuscular Volume 86.2 fl (78.0-98.0); Mean Platelet Volume 10.7 fL (7.4-10.4); RBC Distribution Width 17.3 % (11.5-14.5); Red Blood Cell (RBC) Count 2.69 mill/uL (4.70-6.10); White Blood Cell (WBC) Count 7.7 10x3/uL (4.8-10.8)
[2023-04-23 05:13] LABS: INR-International Normal Ratio 2.6; Prothrombin Time 29.3 sec (12.0-14.7)
[2023-04-23 05:14] LABS: PTT 61.4 sec (22.9-36.1)
[2023-04-23 05:44] LABS: Platelet Count 99 10x3/uL (130-400)
[2023-04-23 07:03] LABS: Albumin 2.9 g/dL (3.5-5.0); Calcium 7.2 mg/dL (7.8-10.44); Chloride 108 mmol/L (98-107); Globulin 2.5 g/dL (2.4-3.5); Glucose 131 mg/dL (70-105); Protein, Total 5.4 g/dL (6.0-8.3); Sodium 142 mmol/L (136-145)
[2023-04-23 07:04] LABS: ALT (SGPT) 15 U/L (8-55); AST (SGOT) 34 U/L (5-34); Anion Gap 12 mmol/L (10-20); BUN (Urea Nitrogen) 10 mg/dL (8.4-25.7); Bilirubin, Total 0.4 mg/dL (0.2-1.2); Carbon Dioxide 26 mmol/L (22-29); Magnesium 1.6 mg/dL (1.6-2.6)
[2023-04-23] MEDS ORDERED: Magnesium 2 GM/50 ML(in water) 2 GM in Premix Bag 1 BAG IVPB SCH ×2 (08:00→10:00)
[2023-04-23 08:21] LABS: Alkaline Phosphatase 120 U/L (40-110); Calc. Creatinine Clearance 115 mL/min (70-130); Estimated GFR 108; Phosphorus 3.5 mg/dL (2.3-4.7)
[2023-04-23] MEDS: Spironolactone 25 MG TAB PO SCH ×2 (10:18→17:02)
[2023-04-23] MEDS: Furosemide 20 MG TAB PO SCH ×2 (10:18→14:55)
[2023-04-23] MEDS: Phytonadione 5 MG TAB PO SCH (10:20)
[2023-04-23] MEDS: Potassium Bicarbonate/Cit Ac 20 MEQ TAB PO SCH ×2 (12:32→17:02)
[2023-04-23] MEDS ORDERED: Sodium Bicarbonate 2.5 MEQ/5 ML VIAL ONE (15:04)
[2023-04-23] MEDS ORDERED: Lidocaine 1% PF 5 ML VIAL ONE (15:04)
[2023-04-23] MEDS: Thiamine HCl 200 MG/2 ML VIAL SLOW IVP SCH (17:02)
[2023-04-23] MEDS ORDERED: Lorazepam 1 MG TAB PO PRN (17:45)
[2023-04-23 18:44] LABS: RBC Count-Automated (BF) 32 /cu.mm; WBC/Nucleated-Auto (BF) 43 /cu.mm
[2023-04-23 19:27] LABS: BF Color Yellow; Body Fluid Source Ascites Body Fluid; Clarity Clear (Clear); Tube # EDTA
[2023-04-23 19:28] LABS: BF Segmented Neutrophils 17 %; Cell Count Non Hematic 66 %; Lymphocytes 17 %
[2023-04-23] MEDS: cefTRIAXone\\ROCEPHIN 1 GM in Sodium Chloride 0.9% 100 ML IVPB SCH (20:43)
[2023-04-23] MEDS: Multivit, Therapeutic 1 TAB PO SCH (20:48)
[2023-04-23] MEDS: Cyanocobalamin (Vitamin B-12) 1,000 MCG TAB PO SCH (20:48)
[2023-04-23] MEDS: Cholecalciferol 1,000 UNITS (25 MCG) TAB PO SCH (20:48)
[2023-04-23] MEDS: Folic Acid 1 MG TAB PO SCH (20:48)
[2023-04-24 04:45] LABS: #Neutrophils 9.6 thou/uL (1.40-6.50); %Basophils 0.1 % (0.0-1.0); %Eosinophils 0.1 % (0.0-10.0); %Lymphocytes 10.3 % (21.0-51.0); %Monocytes 8.2 % (0.0-10.0); %Neutrophils 80.5 % (42.0-75.0); Hematocrit 23.7 % (42.0-52.0); Hemoglobin 7.8 g/dL (14.0-18.0); Mean Corpuscular HGB CONC 32.9 g/dL (32.0-36.0); Mean Corpuscular Hemoglobin 27.9 pg (27.0-31.0); Mean Corpuscular Volume 84.6 fl (78.0-98.0); Mean Platelet Volume 12.1 fL (7.4-10.4); Platelet Count 94 10x3/uL (130-400); RBC Distribution Width 17.4 % (11.5-14.5); White Blood Cell (WBC) Count 11.9 10x3/uL (4.8-10.8)
[2023-04-24 05:04] LABS: INR-International Normal Ratio 2.1; Prothrombin Time 24.5 sec (12.0-14.7)
[2023-04-24 05:05] LABS: PTT 55.8 sec (22.9-36.1)
[2023-04-24 05:09] LABS: ALT (SGPT) 18 U/L (8-55); AST (SGOT) 19 U/L (5-34); Albumin 2.5 g/dL (3.5-5.0); Alkaline Phosphatase 133 U/L (40-110); Anion Gap 11 mmol/L (10-20); BUN (Urea Nitrogen) 9 mg/dL (8.4-25.7); Bilirubin, Total 0.4 mg/dL (0.2-1.2); Calc. Creatinine Clearance 120 mL/min (70-130); Calcium 7.6 mg/dL (7.8-10.44); Carbon Dioxide 28 mmol/L (22-29); Chloride 107 mmol/L (98-107); Estimated GFR 109; Globulin 2.8 g/dL (2.4-3.5); Glucose 121 mg/dL (70-105); Magnesium 1.7 mg/dL (1.6-2.6); Potassium 3.9 mmol/L (3.5-5.1); Protein, Total 5.3 g/dL (6.0-8.3); Sodium 142 mmol/L (136-145)
[2023-04-24 05:17] LABS: Phosphorus 1.8 mg/dL (2.3-4.7)
[2023-04-24] MEDS ORDERED: Magnesium 2 GM/50 ML(in water) 2 GM in Premix Bag 1 BAG IVPB SCH (08:00)
[2023-04-24] MEDS: PHOS-NAK 1 PKT PACK PO SCH ×2 (09:18→12:55)
[2023-04-24] MEDS: Spironolactone 25 MG TAB PO SCH ×2 (09:18→17:18)
[2023-04-24] MEDS: Furosemide 40 MG TAB PO SCH (09:18)
[2023-04-24] MEDS: Thiamine 100 MG TAB PO SCH (09:18)
[2023-04-24] MEDS: Potassium Bicarbonate/Cit Ac 20 MEQ TAB PO SCH ×3 (09:19→17:18)
[2023-04-24] MEDS: Phytonadione 5 MG TAB PO SCH (11:30)
[2023-04-24 12:09] LABS: Iron 34 ug/dL (65-175)
[2023-04-24] MEDS ORDERED: Lorazepam 0.5 MG TAB PO PRN (17:45)
[2023-04-24] MEDS: Multivit, Therapeutic 1 TAB PO SCH (21:51)
[2023-04-24] MEDS: Cyanocobalamin (Vitamin B-12) 1,000 MCG TAB PO SCH (21:51)
[2023-04-24] MEDS: Cholecalciferol 1,000 UNITS (25 MCG) TAB PO SCH (21:51)
[2023-04-24] MEDS: Folic Acid 1 MG TAB PO SCH (21:51)
[2023-04-24] MEDS: cefTRIAXone\\ROCEPHIN 1 GM in Sodium Chloride 0.9% 100 ML IVPB SCH (21:52)
[2023-04-25] MEDS: Ipratropium/Albuterol 3 ML NEB NEB PRN (03:07)
[2023-04-25 03:21] LABS: Actual Bicarbonate (HCO3a) 23.9 mEq/L (22-28); Base Excess (BEa) 0.6 mEq/L (-2.0 to +3.0); CO2 Tension 32.8 mmHg (35.0-45.0); Calcium, Ionized (arterial) 1.12 mmol/L (1.12-1.30); Carboxyhemoglobin (COHb) 1.5 gm% (0.0-3.0); Hematocrit-ABG 22 % (42.0-52.0); Hemoglobin (Hb) 7.5 g/dL (14.0-18.0); Potassium - ABG Lab 3.81 mmol/L (3.70-5.30); pH, Arterial 7.481 (7.35-7.45)
[2023-04-25 03:23] LABS: O2 Tension (PaO2), arterial 42.6 mmHg (80.0-100.0)
[2023-04-25 03:24] LABS: Puncture Site RBA
[2023-04-25 03:32] LABS: #Monocytes 0.8 thou/uL (0.11-0.59); #Neutrophils 5.9 thou/uL (1.40-6.50); %Basophils 0.1 % (0.0-1.0); %Eosinophils 0.1 % (0.0-10.0); %Lymphocytes 21.2 % (21.0-51.0); %Monocytes 9.7 % (0.0-10.0); %Neutrophils 68.2 % (42.0-75.0); Hemoglobin 7.3 g/dL (14.0-18.0); Mean Corpuscular HGB CONC 33.2 g/dL (32.0-36.0); Mean Corpuscular Hemoglobin 27.9 pg (27.0-31.0); Mean Platelet Volume 11.1 fL (7.4-10.4); Platelet Count 104 10x3/uL (130-400); RBC Distribution Width 17.3 % (11.5-14.5); Red Blood Cell (RBC) Count 2.62 mill/uL (4.70-6.10); White Blood Cell (WBC) Count 8.7 10x3/uL (4.8-10.8)
[2023-04-25] MEDS ORDERED: methylPREDNISolone Sod Succ/PF 125 MG/2 ML VIAL IVP SCH (03:35)
[2023-04-25] MEDS ORDERED: Furosemide 40 MG/4 ML VIAL SLOW IVP SCH ×2 (03:45→04:15)
[2023-04-25 03:46] LABS: Lactic Acid 3.7 mmol/L (0.5-2.2)
[2023-04-25 03:54] LABS: ALT (SGPT) 18 U/L (8-55); AST (SGOT) 19 U/L (5-34); Albumin 2.1 g/dL (3.5-5.0); Alkaline Phosphatase 136 U/L (40-110); Anion Gap 12 mmol/L (10-20); BUN (Urea Nitrogen) 9 mg/dL (8.4-25.7); Bilirubin, Total 0.3 mg/dL (0.2-1.2); Calc. Creatinine Clearance 117 mL/min (70-130); Calcium 7.6 mg/dL (7.8-10.44); Carbon Dioxide 26 mmol/L (22-29); Chloride 107 mmol/L (98-107); Estimated GFR 108; Globulin 2.8 g/dL (2.4-3.5); Glucose 187 mg/dL (70-105); Magnesium 1.4 mg/dL (1.6-2.6); Phosphorus 1.9 mg/dL (2.3-4.7); Potassium 3.6 mmol/L (3.5-5.1); Protein, Total 4.9 g/dL (6.0-8.3); Sodium 141 mmol/L (136-145)
[2023-04-25] MEDS ORDERED: Albumin 25% 25 GM/100 ML BOT IVPB SCH ×2 (04:00→18:00)
[2023-04-25] MEDS ORDERED: Magnesium 2 GM/50 ML(in water) 2 GM in Premix Bag 1 BAG IVPB SCH ×2 (04:00→08:00)
[2023-04-25] MEDS ORDERED: Furosemide 20 MG/2 ML VIAL SLOW IVP SCH (04:15)
[2023-04-25 04:35] LABS: Troponin I Less than 0.010 ng/mL (< 0.028)
[2023-04-25] MEDS: Furosemide 40 MG TAB PO SCH (07:48)
[2023-04-25] MEDS: Potassium Bicarbonate/Cit Ac 20 MEQ TAB PO SCH (07:48)
[2023-04-25] MEDS: Spironolactone 25 MG TAB PO SCH ×2 (07:48→16:47)
[2023-04-25] MEDS: PHOS-NAK 1 PKT PACK PO SCH ×2 (07:52→11:03)
[2023-04-25] MEDS: Thiamine 100 MG TAB PO SCH (08:18)
[2023-04-25] MEDS: Phytonadione 5 MG TAB PO SCH (08:53)
[2023-04-25 12:17] LABS: Smooth Muscle Total ABS 5 Units (0-19)
[2023-04-25] MEDS: Ipratropium/Albuterol 3 ML NEB IPPB SCH ×2 (14:41→18:28)
[2023-04-25 17:46] LABS: Potassium 4.9 mmol/L (3.5-5.1)
[2023-04-25] MEDS ORDERED: Mometasone 100 MCG/Formoterol 5 MCG 120 PUFF INHALER INH SCH (18:30)
[2023-04-25] MEDS: Mometasone 100 MCG/Formoterol 5 MCG 120 PUFF INHALER INH SCH (18:31)
[2023-04-25] MEDS: Cholecalciferol 1,000 UNITS (25 MCG) TAB PO SCH (20:38)
[2023-04-25] MEDS: Folic Acid 1 MG TAB PO SCH (20:39)
[2023-04-25] MEDS: Cyanocobalamin (Vitamin B-12) 1,000 MCG TAB PO SCH (20:39)
[2023-04-25] MEDS: cefTRIAXone\\ROCEPHIN 1 GM in Sodium Chloride 0.9% 100 ML IVPB SCH (20:39)
[2023-04-25] MEDS: Multivit, Therapeutic 1 TAB PO SCH (20:39)
[2023-04-26] MEDS: Ipratropium/Albuterol 3 ML NEB IPPB SCH ×4 (00:14→18:41)
[2023-04-26 05:43] LABS: #Monocytes 1.4 thou/uL (0.11-0.59); #Neutrophils 9.6 thou/uL (1.40-6.50); %Basophils 0.1 % (0.0-1.0); %Lymphocytes 10.3 % (21.0-51.0); %Monocytes 11.2 % (0.0-10.0); %Neutrophils 77.1 % (42.0-75.0); Hematocrit 20.1 % (42.0-52.0); Hemoglobin 6.7 g/dL (14.0-18.0); Mean Corpuscular HGB CONC 33.3 g/dL (32.0-36.0); Mean Corpuscular Volume 84.1 fl (78.0-98.0); Mean Platelet Volume 11.4 fL (7.4-10.4); RBC Distribution Width 17.2 % (11.5-14.5); Red Blood Cell (RBC) Count 2.39 mill/uL (4.70-6.10); White Blood Cell (WBC) Count 12.4 10x3/uL (4.8-10.8)
[2023-04-26 05:50] LABS: Platelet Count 100 10x3/uL (130-400)
[2023-04-26 06:00] LABS: Prothrombin Time 23.5 sec (12.0-14.7)
[2023-04-26 06:01] LABS: PTT 52.2 sec (22.9-36.1)
[2023-04-26 06:09] LABS: ALT (SGPT) 15 U/L (8-55); AST (SGOT) 15 U/L (5-34); Albumin 2.9 g/dL (3.5-5.0); Alkaline Phosphatase 103 U/L (40-110); Anion Gap 11 mmol/L (10-20); BUN (Urea Nitrogen) 11 mg/dL (8.4-25.7); Bilirubin, Total 0.4 mg/dL (0.2-1.2); Calc. Creatinine Clearance 122 mL/min (70-130); Calcium 8.4 mg/dL (7.8-10.44); Carbon Dioxide 28 mmol/L (22-29); Chloride 107 mmol/L (98-107); Estimated GFR 110; Glucose 171 mg/dL (70-105); Magnesium 1.4 mg/dL (1.6-2.6); Potassium 3.1 mmol/L (3.5-5.1); Protein, Total 4.9 g/dL (6.0-8.3); Sodium 143 mmol/L (136-145)
[2023-04-26 06:15] LABS: Phosphorus 2.8 mg/dL (2.3-4.7)
[2023-04-26] MEDS: Furosemide 40 MG TAB PO SCH (06:48)
[2023-04-26] MEDS: Mometasone 100 MCG/Formoterol 5 MCG 120 PUFF INHALER INH SCH ×2 (06:56→18:42)
[2023-04-26] MEDS ORDERED: Potassium Chloride 20 MEQ TAB PO SCH (08:00)
[2023-04-26] MEDS ORDERED: Magnesium Sulfate In Water 4 GM in Premix Bag 1 BAG IVPB SCH (08:00)
[2023-04-26] MEDS: Thiamine 100 MG TAB PO SCH (08:58)
[2023-04-26] MEDS: Spironolactone 25 MG TAB PO SCH ×2 (08:58→18:04)
[2023-04-26] MEDS ORDERED: Furosemide 20 MG/2 ML VIAL SLOW IVP SCH (15:00)
[2023-04-26 15:52] LABS: ANA Symphony (Qualitative) Negative (Negative); ANA Symphony (Quantitative) 0.3 Ratio (< 0.7 Negative); EliA Vaculitis New Method **** NEW METHOD ****; dsDNA IgG Antibody 1.6 IU/mL (<10 Negative)
[2023-04-26] MEDS: Folic Acid 1 MG TAB PO SCH (20:49)
[2023-04-26] MEDS: cefTRIAXone\\ROCEPHIN 1 GM in Sodium Chloride 0.9% 100 ML IVPB SCH (20:49)
[2023-04-26] MEDS: Multivit, Therapeutic 1 TAB PO SCH (20:49)
[2023-04-26] MEDS: Cholecalciferol 1,000 UNITS (25 MCG) TAB PO SCH (20:49)
[2023-04-26] MEDS: Cyanocobalamin (Vitamin B-12) 1,000 MCG TAB PO SCH (20:49)
[2023-04-27] MEDS: Ipratropium/Albuterol 3 ML NEB IPPB SCH ×4 (01:27→18:35)
[2023-04-27] MEDS: Furosemide 40 MG TAB PO SCH (06:51)
[2023-04-27] MEDS ORDERED: Lidocaine 1% (PF) 30 ML VIAL ONE (07:04)
[2023-04-27] MEDS: Mometasone 100 MCG/Formoterol 5 MCG 120 PUFF INHALER INH SCH ×2 (07:33→18:35)
[2023-04-27 07:35] LABS: #Monocytes 1.3 thou/uL (0.11-0.59); #Neutrophils 6.9 thou/uL (1.40-6.50); %Lymphocytes 8.9 % (21.0-51.0); %Monocytes 14.6 % (0.0-10.0); %Neutrophils 75.8 % (42.0-75.0); Hematocrit 27.2 % (42.0-52.0); Hemoglobin 9.6 g/dL (14.0-18.0); Mean Corpuscular HGB CONC 35.3 g/dL (32.0-36.0); Mean Corpuscular Hemoglobin 28.7 pg (27.0-31.0); Mean Corpuscular Volume 81.4 fl (78.0-98.0); Mean Platelet Volume 11.6 fL (7.4-10.4); RBC Distribution Width 15.9 % (11.5-14.5); Red Blood Cell (RBC) Count 3.34 mill/uL (4.70-6.10); White Blood Cell (WBC) Count 9.1 10x3/uL (4.8-10.8)
[2023-04-27 07:51] LABS: Anion Gap 13 mmol/L (10-20); BUN (Urea Nitrogen) 10 mg/dL (8.4-25.7); Calc. Creatinine Clearance 128 mL/min (70-130); Calcium 8.2 mg/dL (7.8-10.44); Carbon Dioxide 26 mmol/L (22-29); Chloride 106 mmol/L (98-107); Estimated GFR 112; Glucose 92 mg/dL (70-105); Magnesium 1.3 mg/dL (1.6-2.6); Potassium 3.4 mmol/L (3.5-5.1); Sodium 142 mmol/L (136-145)
[2023-04-27 08:30] LABS: Platelet Count 99 10x3/uL (130-400)
[2023-04-27] MEDS: Spironolactone 25 MG TAB PO SCH ×2 (08:33→16:35)
[2023-04-27] MEDS: Thiamine 100 MG TAB PO SCH (08:33)
[2023-04-27] MEDS ORDERED: Potassium Chloride 20 MEQ TAB PO SCH (10:00)
[2023-04-27] MEDS ORDERED: Iopamidol 370 76% 100 ML VIAL ONE (10:59)
[2023-04-27] MEDS ORDERED: Magnesium Sulfate In Water 4 GM in Premix Bag 1 BAG IVPB SCH (11:00)
[2023-04-27] MEDS ORDERED: Nystatin Powder 15 GM BOT TOP PRN (11:34)
[2023-04-27] MEDS: Multivit, Therapeutic 1 TAB PO SCH (20:11)
[2023-04-27] MEDS: Cholecalciferol 1,000 UNITS (25 MCG) TAB PO SCH (20:11)
[2023-04-27] MEDS: cefTRIAXone\\ROCEPHIN 1 GM in Sodium Chloride 0.9% 100 ML IVPB SCH (20:11)
[2023-04-27] MEDS: Cyanocobalamin (Vitamin B-12) 1,000 MCG TAB PO SCH (20:11)
[2023-04-27] MEDS: Folic Acid 1 MG TAB PO SCH (20:14)
[2023-04-28] MEDS: Ipratropium/Albuterol 3 ML NEB IPPB SCH ×4 (00:15→18:53)
[2023-04-28] MEDS: Furosemide 40 MG TAB PO SCH (06:19)
[2023-04-28] MEDS: Mometasone 100 MCG/Formoterol 5 MCG 120 PUFF INHALER INH SCH ×2 (06:34→18:54)
[2023-04-28 06:46] LABS: ALT (SGPT) 20 U/L (8-55); AST (SGOT) 25 U/L (5-34); Albumin 2.2 g/dL (3.5-5.0); Alkaline Phosphatase 147 U/L (40-110); Anion Gap 13 mmol/L (10-20); BUN (Urea Nitrogen) 18 mg/dL (8.4-25.7); Bilirubin, Total 0.7 mg/dL (0.2-1.2); Calc. Creatinine Clearance 130 mL/min (70-130); Calcium 8.1 mg/dL (7.8-10.44); Carbon Dioxide 24 mmol/L (22-29); Chloride 108 mmol/L (98-107); Estimated GFR 113; Globulin 2.7 g/dL (2.4-3.5); Glucose 85 mg/dL (70-105); Magnesium 1.6 mg/dL (1.6-2.6); Potassium 2.9 mmol/L (3.5-5.1); Protein, Total 4.9 g/dL (6.0-8.3); Sodium 142 mmol/L (136-145)
[2023-04-28] MEDS ORDERED: Magnesium 2 GM/50 ML(in water) 2 GM in Premix Bag 1 BAG IVPB SCH ×2 (08:00→21:00)
[2023-04-28] MEDS: Spironolactone 25 MG TAB PO SCH ×2 (09:03→18:36)
[2023-04-28] MEDS: Thiamine 100 MG TAB PO SCH (09:03)
[2023-04-28] MEDS: Potassium Chloride 20 MEQ TAB PO SCH ×4 (09:03→23:44)
[2023-04-28 10:16] LABS: #Monocytes 1.4 thou/uL (0.11-0.59); #Neutrophils 4.6 thou/uL (1.40-6.50); %Basophils 0.1 % (0.0-1.0); %Eosinophils 0.1 % (0.0-10.0); %Lymphocytes 19.1 % (21.0-51.0); %Monocytes 18.9 % (0.0-10.0); %Neutrophils 61.4 % (42.0-75.0); Hematocrit 27.9 % (42.0-52.0); Hemoglobin 9.5 g/dL (14.0-18.0); Mean Corpuscular HGB CONC 34.1 g/dL (32.0-36.0); Mean Corpuscular Hemoglobin 29.1 pg (27.0-31.0); Mean Corpuscular Volume 85.6 fl (78.0-98.0); Mean Platelet Volume 11.6 fL (7.4-10.4); Platelet Count 90 10x3/uL (130-400); Red Blood Cell (RBC) Count 3.26 mill/uL (4.70-6.10); White Blood Cell (WBC) Count 7.5 10x3/uL (4.8-10.8)
[2023-04-28] MEDS ORDERED: LevoFLOXacin 750 mg/D5W 750 MG in Premix Bag 1 BAG IVPB SCH (12:30)
[2023-04-28 17:59] LABS: Anion Gap 12 mmol/L (10-20); BUN (Urea Nitrogen) 18 mg/dL (8.4-25.7); Calc. Creatinine Clearance 130 mL/min (70-130); Carbon Dioxide 23 mmol/L (22-29); Chloride 109 mmol/L (98-107); Estimated GFR 113; Glucose 126 mg/dL (70-105); Magnesium 1.6 mg/dL (1.6-2.6); Potassium 2.9 mmol/L (3.5-5.1); Sodium 141 mmol/L (136-145)
[2023-04-28] MEDS: Multivit, Therapeutic 1 TAB PO SCH (20:09)
[2023-04-28] MEDS: Cholecalciferol 1,000 UNITS (25 MCG) TAB PO SCH (20:09)
[2023-04-28] MEDS: Folic Acid 1 MG TAB PO SCH (20:09)
[2023-04-28] MEDS: Cyanocobalamin (Vitamin B-12) 1,000 MCG TAB PO SCH (20:09)
[2023-04-29] MEDS: Ipratropium/Albuterol 3 ML NEB IPPB SCH ×4 (01:39→18:21)
[2023-04-29] MEDS: Furosemide 40 MG TAB PO SCH (06:03)
[2023-04-29 06:05] LABS: Anion Gap 9 mmol/L (10-20); BUN (Urea Nitrogen) 19 mg/dL (8.4-25.7); Calc. Creatinine Clearance 132 mL/min (70-130); Carbon Dioxide 27 mmol/L (22-29); Chloride 107 mmol/L (98-107); Estimated GFR 114; Glucose 96 mg/dL (70-105); Magnesium 1.7 mg/dL (1.6-2.6); Potassium 3.4 mmol/L (3.5-5.1); Sodium 140 mmol/L (136-145)
[2023-04-29] MEDS: Mometasone 100 MCG/Formoterol 5 MCG 120 PUFF INHALER INH SCH ×2 (07:06→18:22)
[2023-04-29] MEDS ORDERED: Magnesium 2 GM/50 ML(in water) 2 GM in Premix Bag 1 BAG IVPB SCH (08:00)
[2023-04-29] MEDS ORDERED: Potassium Chloride 20 MEQ TAB PO SCH (08:00)
[2023-04-29] MEDS: Thiamine 100 MG TAB PO SCH (08:30)
[2023-04-29] MEDS ORDERED: LevoFLOXacin 750 mg/D5W 750 MG in Premix Bag 1 BAG IVPB SCH (09:00)
[2023-04-29] MEDS ORDERED: Spironolactone 100 MG TAB PO SCH (09:00)
[2023-04-29 13:26] VITALS: BMI 22.7
[2023-04-29 21:10] VITALS: BP 137/89; TEMP 98.4
== END 2023-04-29 21:05 | DRG 432 ==
LOC: ERS 13:41 → ERHOLD 16:53 → 2NO 18:59 → T4-A 04-24 20:54 → CCU 04-25 03:35 → SURG A 04-25 17:29
PROVIDERS: ADMIT Family Medicine; ATTEND Internal Medicine
PROC: 30233J1 Transfusion of Nonautologous Serum Albumin into Peripheral Vein, Percutaneous Approach (ICD-10-PCS; 2023-04-21)
PROC: 0W9G3ZX Drainage of Peritoneal Cavity, Percutaneous Approach, Diagnostic (ICD-10-PCS; 2023-04-23)
PROC: 0W9G3ZZ Drainage of Peritoneal Cavity, Percutaneous Approach (ICD-10-PCS; 2023-04-25)
PROC: 4A133R1 Monitoring of Arterial Saturation, Peripheral, Percutaneous Approach (ICD-10-PCS; 2023-04-25)
PROC: 5A0935A Assistance with Respiratory Ventilation, Less than 24 Consecutive Hours, High Flow/Velocity Cannula (ICD-10-PCS; 2023-04-25)
PROC: 30233N1 Transfusion of Nonautologous Red Blood Cells into Peripheral Vein, Percutaneous Approach (ICD-10-PCS; 2023-04-26)
PROC: 06H03DZ Insertion of Intraluminal Device into Inferior Vena Cava, Percutaneous Approach (ICD-10-PCS; principal; 2023-04-27)
PROC: B5191ZZ Fluoroscopy of Inferior Vena Cava using Low Osmolar Contrast (ICD-10-PCS; 2023-04-27)
PROC: B4101ZZ Fluoroscopy of Abdominal Aorta using Low Osmolar Contrast (ICD-10-PCS; 2023-04-27)
DX: K70.31 Alcoholic cirrhosis of liver with ascites (principal); J96.01 Acute respiratory failure with hypoxia; N39.0 Urinary tract infection, site not specified; R64 Cachexia; E44.0 Moderate protein-calorie malnutrition; I82.413 Acute embolism and thrombosis of femoral vein, bilateral; D68.4 Acquired coagulation factor deficiency; E87.3 Alkalosis; E87.70 Fluid overload, unspecified; J45.909 Unspecified asthma, uncomplicated; E83.42 Hypomagnesemia; E88.09 Other disorders of plasma-protein metabolism, not elsewhere classified; E87.6 Hypokalemia; R53.81 Other malaise; D69.6 Thrombocytopenia, unspecified; D50.9 Iron deficiency anemia, unspecified; I10 Essential (primary) hypertension; F03.90 Unspecified dementia, unspecified severity, without behavioral disturbance, psychotic disturbance, mood disturbance, and anxiety; E16.2 Hypoglycemia, unspecified; R62.51 Failure to thrive (child); Z68.22 Body mass index [BMI] 22.0-22.9, adult; Z91.018 Allergy to other foods; Z79.51 Long term (current) use of inhaled steroids; Z79.899 Other long term (current) drug therapy; Z98.890 Other specified postprocedural states; Z71.41 Alcohol abuse counseling and surveillance of alcoholic; F10.20 Alcohol dependence, uncomplicated
CPT/HCPCS: 36415; 36416; 36430; 36600; 37191; 49083; 71045; 74183; 76705; 80048; 80053; 80143; 80179; 80306; 80307; 81001; 82105; 82140; 82728; 82805; 83516; 83540; 83550; 83605; 83690; 83735; 83880; 84100; 84145; 84157; 84484; 85025; 85060; 85610; 85730; 86015; 86038; 86225; 86301; 86850; 86900; 86901; 87070; 87077; 87086; 87186; 87205; 88112; 88305; 89051; 93005; 93010; 93970; 94640; 96374; 96375; 97139; C1769; C1880; C1894; J0612; J0696; J1940; J1956; J2001; J2930; J3411; J3475; J3490; J7030; J7050; J7070; J7620; J7999; P9016; P9047; Q0162; Q9967